=== PATIENT | female | born 1995 | race Hispanic/Latino ===

== ENCOUNTER 2019-02-08 07:28 | Inpatient (IN) | payer OTHER ==
[2019-02-08] MEDS ORDERED: Ringers Lactate 1,000 ML IV PRN (10:30)
[2019-02-08] MEDS ORDERED: METHYLERGONOVINE 0.2MG/ML AMP IM PRN (10:30)
[2019-02-08 10:53] LABS: RPR Titer ND
[2019-02-08 10:58] LABS: Absolute Lymphocytes (CBC) 2.4 K/uL (0.7-4.9); Absolute Monocytes 0.5 K/uL (0.1-1.3); Absolute Neutrophil 6.4 K/uL (1.8-8.0); Basophils % 0.3 % (0-1.3); Eosinophils % 0.5 % (0-4.4); Hematocrit 33.8 % (36.0-45.0); Lymphocytes % 25.5 % (15.3-44.8); MPV 9.4 fL (7.6-11.3); Monocytes % 5.8 % (3.3-12.3); RBC Red Blood Cell Count 4.19 M/uL (3.86-4.86)
[2019-02-08] MEDS ORDERED: Ringers Lactate 1,000 ML IV SCH (11:00)
[2019-02-08] MEDS ORDERED: OXYTOCIN/LR 20 UNIT/1,000 ML BAG IV SCH (11:00)
--- NOTE | 2019-02-08 11:33 | P.OBGYNHP ---
Certification for Inpatient Patient admitted to: Inpatient With expected LOS: >2 Midnights Patient will require the following post-hospital care: None Practitioner: I am a practitioner with admitting privileges, knowledge of patient current condition, hospital course, and medical plan of care. Services: Services provided to patient in accordance with Admission requirements found in Title 42 Section 412.3 of the Code of Federal Regulations Patient History Date of Service: 02/08/19 Reason for admission: INDUCTION OF LABOR History of Present Illness: Patient is a 23 y/o at 36 weeks and 6 days gestation who presents for induction of labor at recommendation of [facility] due to uteroplacental insufficiency. Patient has been followed by [facility] due to high risk . Patient is morbidly obese with a prepregnancy BMI of 43. Patient has been compliant with care and recommendations. Total weight gain has been 6 pounds. She has not developed diabetes. She has also had borderline elevated umbilical artery dopplers for which she has had ultrasounds done with [facility] weekly. She was last seen by [facility] on 02/04/19. Allergies No Known Allergies Allergy (Unverified 11/27/14 05:32) - Past Medical/Surgical History -: Morbid obesity -: Asthma Past Surgical History: Patient denies surgical history - Family History Family History: Reviewed- Non-Contributory - Social History Smoking Status: Never smoker Alcohol use: No CD- Drugs: No Caffeine use: No Place of Residence: Home Review of Systems 10-point ROS is otherwise unremarkable Physical Examination - General General: Alert and in no apparent distress, Oriented x3 HEENT: Atraumatic Neck: Supple Respiratory: Normal air movement Cardiovascular: No edema, Normal pulses Gastrointestinal: Other (obese gravid abdomen) Musculoskeletal: No clubbing, No swelling Integumentary: No rashes, No breakdown Neurological: Normal gait, Normal speech - Female Pelvic External genitalia: Normal, No lesions, No masses Vagina: Normal, [place], Moist Cervix: Dilation (1-2), Effacement (30%), station (-3) Uterus: Gravid Adnexa: Unable to evaluate - Obstetrics heart rate tracing: Category 2 Contractions: Frequency (none) Amniotic membrane: AROM (clear fluid seen) Laboratory Data (last 24 hrs) 02/08/19 10:12: WBC 9.4, Hgb 11.3 L, Hct 33.8 L, Plt Count 404 Microbiology Data (last 24 hrs): GBS NEGATIVE Assessment and Plan - Plan [place] is a 23 y/o at 36 weeks and 6 days gestation with high risk due to morbid obesity, placental insufficiency, elevated umbilical artery dopplers, and asthma. Patient presents for induction of labor as per [facility] recommendations. Patient has had rupture of membranes performed. Pitocin has been started. She is comfortable. GBS negative. Epidural placement at patient's request. Discharge Plan: Home Plan to discharge in: 72 Hours - Advance Directives Does patient have a Living Will: No Does patient have a Durable POA for Healthcare: No
[2019-02-08 12:39] VITALS: BMI 44.4
[2019-02-08] MEDS ORDERED: NA CIT/CITRIC AC 30 ML ORAL UDC PO ONE (20:52)
[2019-02-08] MEDS ORDERED: CEFAZOLIN 2 GM in NA CHLORIDE 0.9% 100 ML IVPB ONE (20:53)
[2019-02-08] MEDS ORDERED: METOCLOPRAMIDE 10 MG/2mL INJ IV SCH (21:00)
[2019-02-08] MEDS ORDERED: CEFAZOLIN 2GM (PREMIX IV) 2 GM/50 ML BAG ONE (21:17)
[2019-02-08] MEDS ORDERED: MORPHINE SULFATE/PF 1 MG/ML (10 ML AMP) ONE (21:23)
[2019-02-08] MEDS ORDERED: OXYTOCIN 10 UNIT/ML ML IV ONE (21:23)
[2019-02-08] MEDS ORDERED: ONDANSETRON 4 MG/2 ML VIAL ONE (21:23)
[2019-02-08] MEDS ORDERED: METHYLERGONOVINE 0.2 MG TAB PO PRN (22:44)
[2019-02-08] MEDS ORDERED: Oxycodone HCl/Acetaminophen 1 TAB TAB PO PRN ×2 (22:44)
[2019-02-08] MEDS ORDERED: DOCUSATE NA/SENNA CONC 1 TAB PO PRN (22:44)
[2019-02-08] MEDS ORDERED: BISACODYL 10 MG RECTAL SUPP RECT PRN (22:44)
[2019-02-08] MEDS ORDERED: ONDANSETRON 4 MG (ODT) TAB PO PRN (22:44)
[2019-02-08] MEDS ORDERED: ACETAMINOPHEN 500 MG TAB PO PRN (22:44)
[2019-02-08] MEDS ORDERED: MORPHINE 4 MG/ML SYR IV PRN (22:50)
[2019-02-08] MEDS ORDERED: KETOROLAC 30 MG/ML INJ IV PRN (22:50)
[2019-02-08] MEDS ORDERED: IBUPROFEN 400 MG TAB PO PRN (22:50)
--- NOTE | 2019-02-08 22:53 | P.OP ---
Assembly Loader: Rachel Lopez Preoperative diagnosis: at 36 weeks and 6 days with failure to progress category ii jarvis Postoperative diagnosis: same Primary procedure: Primary low transverse section Anesthesia: Spinal Estimated blood loss: 800cc Specimen: cord blood, placenta Operative Technique: The patient was taken to the operating room where epidural anesthesia was found to be adequate. The patient was prepped and draped in the usual sterile fashion in the dorsal supine position with a left-arndt tilt. A Pfannenstiel skin incision was made with the scalpel and carried through muliple layers of adipose tissue to the underlying layer of fascia using the scalpel. The fascia was incised in the midline and extended laterally using Samuels scissors. Farhan clamps were used to elevate the superior aspect of the fascial incision, which was elevated, and the underlying rectus muscles were dissected off bluntly and using Samuels scissors. Attention was then turned to the inferior aspect of the fascial incision, which in similar fashion was grasped with Farhan clamps, elevated, and the underlying rectus muscles were dissected off bluntly and using Samuels scissors. The rectus muscles were dissected in the midline. The peritoneum was bluntly dissected, entered, and extended superiorly and inferiorly with good visualization of the bladder. The bladder blade was inserted. The vesicouterine peritoneum was identified with pickups and entered sharply using Metzenbaum scissors. This incision was extended laterally and the bladder flap was created digitally. The bladder blade was reinserted. The lower uterine segment was incised in a transverse fashion using the scalpel and extended using manual traction. Clear fluid was noted. The was subsequently delivered atraumatically. The nose and mouth were bulb suctioned. The cord was clamped and cut. The was subsequently handed to the awaiting nursery nurse. Next, cord blood was obtained per the patient's request for cord blood donation, which took several minutes to perform. Subsequent to the collection of this blood, the placenta was removed spontaneously intact with a 3-vessel cord noted. The uterus was exteriorized and cleared of all clots and debris. The uterine incision was repaired in 2 layers using 1 vicryl suture. Hemostasis was visualized. The uterus was returned to the abdomen. The uterine incision was reexamined and was noted to be hemostatic. The rectus muscles were reapproximated in the midline using 0 Vicryl. The fascia was closed with 1 Vicryl, the subcutaneous layer was closed with 2-0 plain gut, and the skin was closed with 3.0 vicryl on a Renny needle. Sponge, lap, and instrument counts were correct x2. The patient was stable at the completion of the procedure and was subsequently transferred to the recovery room in stable condition. Complications: Other (Increased operative time due to morbid obesity) Drain(s): Urinary catheter Transferred to: Recovery Room Condition: Good
[2019-02-09 02:47] LABS: RPR (Rapid Plasma Reagin) NON-REACT (NON-REACT)
[2019-02-09 06:21] LABS: Absolute Lymphocytes (CBC) 2.4 K/uL (0.7-4.9); Absolute Monocytes 0.8 K/uL (0.1-1.3); Absolute Neutrophil 6.8 K/uL (1.8-8.0); Basophils % 0.2 % (0-1.3); Eosinophils % 0.1 % (0-4.4); Hematocrit 27.9 % (36.0-45.0); Lymphocytes % 24.4 % (15.3-44.8); Monocytes % 7.7 % (3.3-12.3); RBC Red Blood Cell Count 3.47 M/uL (3.86-4.86)
[2019-02-09] MEDS ORDERED: FAMOTIDINE 20 MG/2 ML VIAL IV SCH (09:00)
[2019-02-09] MEDS ORDERED: ENOXAPARIN 40 MG/0.4 ML SQ ONE (11:38)
[2019-02-09] MEDS: IBUPROFEN 200 MG TAB PO PRN (22:30)
[2019-02-10] MEDS: IBUPROFEN 200 MG TAB PO PRN ×3 (07:35→23:55)
--- NOTE | 2019-02-10 18:26 | P.PN ---
Date of Service: 02/10/19
--- NOTE | 2019-02-10 18:26 | P.PN ---
Date of Service: 02/09/19
[2019-02-11] MEDS: IBUPROFEN 200 MG TAB PO PRN (10:18)
--- NOTE | 2019-02-11 11:40 | P.DS ---
Admission Date: 02/08/19 Discharge Date: 02/11/19 Disposition: ROUTINE DISCHARGE Discharge Condition: GOOD Reason for Admission: INDUCTION OF LABOR Brief History of Present Illness: Patient is a 23 y/o at 36 weeks and 6 days gestation who presents for induction of labor at recommendation of [facility] due to uteroplacental insufficiency. Patient has been followed by [facility] due to high risk . Patient is morbidly obese with a prepregnancy BMI of 43. Patient has been compliant with care and recommendations. Total weight gain has been 6 pounds. She has not developed diabetes. She has also had borderline elevated umbilical artery dopplers for which she has had ultrasounds done with [facility] weekly. She was last seen by [facility] on 02/04/19. Vital Signs/Physical Exam: Temp Pulse Resp BP Pulse Ox 97.5 F 89 18 102/45 L 97 02/11/19 00:00 02/11/19 00:00 02/11/19 00:00 02/11/19 00:00 02/09/19 08:00 General: Alert, In no apparent distress HEENT: Atraumatic Neck: Supple Respiratory: Normal air movement Cardiovascular: Normal pulses Laboratory Data at Discharge: WBC 10.0 K/uL (4.3-10.9) 02/09/19 05:52 Hgb 9.3 g/dL (12.0-15.0) L 02/09/19 05:52 Hct 27.9 % (36.0-45.0) L D 02/09/19 05:52 Plt Count 364 K/uL (152-406) 02/09/19 05:52 Home Medications: Vit #108/Iron/FA [ One Tablet] 1 tab PO DAILY 02/08/19 Codeine/APAP [Tylenol W/Codeine #3 tab] 1 tab PO Q6HP PRN #24 tab 02/10/19 New Medications: Codeine/APAP [Tylenol W/Codeine #3 tab] 1 tab PO Q6HP PRN #24 tab PRN Reason: Pain Diet: Regular Activity: No lifting more than 10 lbs Followup: Andrew Parsons DO [ACTIVE - CAN ADMIT] - (Follow up care with Dr. Parsons in 6 weeks for post visit. [phone])
[2019-02-11 12:26] VITALS: BP 105/71; TEMP 97.4
[2019-02-12 02:46] LABS: HBsAG Nonreactive (Nonreactive)
== END 2019-02-11 10:22 | disposition home or self-care (01) | DRG 787 ==
LOC: 2ND-WC 10:00
PROVIDERS: ADMIT Student in an Organized Health Care Education/Training Program; ATTEND Student in an Organized Health Care Education/Training Program
PROC: 3E033VJ Introduction of Other Hormone into Peripheral Vein, Percutaneous Approach (ICD-10-PCS; 2019-02-08)
PROC: 10D00Z1 Extraction of Products of Conception, Low, Open Approach (ICD-10-PCS; 2019-02-08)
PROC: 6A550ZT Pheresis of Cord Blood Stem Cells, Single (ICD-10-PCS; 2019-02-08)
PROC: 10907ZC Drainage of Amniotic Fluid, Therapeutic from Products of Conception, Via Natural or Artificial Opening (ICD-10-PCS; principal; 2019-02-08 21:25)
DX: O36.5130 Maternal care for known or suspected placental insufficiency, third trimester, not applicable or unspecified (principal); Z68.41 Body mass index [BMI] 40.0-44.9, adult; O99.214 Obesity complicating childbirth; E66.01 Morbid (severe) obesity due to excess calories; O63.1 Prolonged second stage (of labor); Z3A.36 36 weeks gestation of pregnancy; Z37.0 Single live birth
CPT/HCPCS: 36415; 85025; 86592; 86850; 86900; 86901; 87340; 88307; J0690; J1650; J2405; J2590; J2765

== ENCOUNTER 2023-02-17 11:15 | Emergency (ER) | payer BC, OTHER ==
--- OUTSIDE RECORDS SUMMARY | 2023-02-17 11:50 | XMS REPORT | Continuity of Care Document ---
:1995 Author Organization [facility] t Address [address] [address] Care Team Providers Name Role Phone SILKE PAYTON Attending Clinician Unavailable Ally Henry Attending Clinician Unavailable Preston Anne Attending Clinician Unavailable Kelechi STOKES, Juan Hankins Attending Clinician [phone] Silke Payton MD Attending Clinician SILKE PAYTON Admitting Clinician Unavailable Payers Payer Name Policy Type Policy Number Effective Date Expiration Date S our BCBS OS [id number] 2021 POS/PPO/EPO 00:00:00 Blue Cross 6 [id number] [facility] t Blue Shield [facility] AETNA 53 [id number] 2020 [facility] 00:00:00 [facility] AETNA C1 [id number] [facility] Problems Condition Condition Condition Status Onset Resolution Last Treating Co mments Source Name Details Category Date Date Treatment Clinician Date Endometria Endometria Disease Active [facility] polyp [facility] polyp 7[facility]20 [facility] 00 Center Class 3 Class [address] [facility] severe severe nce 02-23 [facility] obesity in obesity in 00:00: Me dical adult adult 00 Center History of History of Disease Active [facility] delivery delivery 00:00: Medica l 00 Center History of History of Disease Active [facility] 02-23 kes delivery- delivery- 00:00: Medi erich 36 - 37 36 - 37 00 Center weeks; weeks; oligo oligo Intermenst Intermenst Disease Active [facility] rual rual 02-23 [facility] bleeding bleeding 00:00: Medica 00 Center PMS PMS Disease Active [facility] (prem[facility]str (premenstr 02-23 Shayy kes ual ual 00:00: Medical syndrome) syndrome) 00 Cent er Anxiety Anxiety Disease Active Overview: [facility] and and [facility] [facility] depression depression 00:00: g of this Medical 00 note Center might be different from the original. getting better [id number] Contact Problem Commo n with and Spirit (suspected - CHI ) exposure St to [facility] viral Medical communicab Center le diseases [id number] Cough Problem [facility] - [facility] [id number] Amenorrhea Problem Com mon Spirit - [facility] [id number] Seasonal Problem Commo n allergic Spirit rhinitis - [facility] due to [facility] [id number] Sinus Problem Common congestion Spirit - [facility] [id number] Vitamin D Problem Comm on deficiency Spirit - [facility] [id number] Problem Comm on of unknown Spirit anatomic - [facility] location [facility] [id number] Mild Problem Common intermitte Spirit nt asthma - [facility] without St complicati [facility] [id number] Paresthesi Problem Com mon a of skin Spirit - [facility] [id number] Encounter Problem Com mon for Spirit initial - [facility] prescript[facility] Center [id number] Supervisio Problem Com mon n of high Spirit risk - [facility] in third [facility] trimester Medical Center [id number] Obesity Problem Comm on affecting Spirit - [facility]I in third St trimester [facility] [id number] Placental Problem Com mon insufficie Spirit ncy in - [facility] third St trimester, [facility] single or Medical unspecifie Center d fetus [id number] Body mass Problem Com mon index Spirit [BMI] - [facility] 40.0-44.9, [facility] [id number] Mild Problem Common asthma Spirit without - [facility] complicati St on, [facility] unspecifie Medica l d whether Center persistent Seasonal Allergic Problem Commo n allergic rhinitis, Spiri t rhinitis seasonal - [facility] [id number] Upper Problem Common respirator [facility] y tract - [facility], [facility] [id number] Anxiety Problem Common [facility] [id number] Throat Problem Common pain in [facility] adult [facility] [id number] Allergic Problem Commo n rhinitis, Spirit unspecifie - [facility] d St seasonalit [facility] y, Medical unspecifie Center d trigger [id number] Mild Problem Common anxiety [facility] [id number] Trouble in Problem Co mmon sleeping [facility] [id number] Obesity, Problem Comm on morbid, Spirit BMI - [facility] 40.0-49.9 [facility] Asthma Asthma Disease Active [facility] Allergies, Adverse Reactions, Alerts Allergy Allergy Status Severity Reaction(s) Onset Inactive Treating Comm ents Source Name Type Date Date Clinician NO KNOWN Allergy Active [facility] ALLERGIE S Cinnamon Cinnamon Active Unknown Commo n [facility] Family History Family Member Diagnosis Comments Start Date Stop Date Source Natural father Diabetes [facility] Natural father High blood [facility] pressure [facility] Maternal grandmother Diabetes [facility] Maternal grandmother Thyroid disease [facility] Natural mother Thyroid disease [facility] Other Liver cancer [facility] Paternal grandmother Diabetes [facility] Social History Social Habit Start Date Stop Date Quantity Comments Source History of Tobacco [facility] - Use [facility] History [facility] Alcohol Std Drinks Medica [facility] History [facility] Alcohol Binge Medical Latanya ter Alcohol intake 2022-06-19 2022-06-19 Ex-drinker [facility] Lizzie es 00:00:00 00:00:00 (finding) [facility] Center Tobacco use and 2022-02-22 2022-02-[address] [facility] exposure 00:00:00 00:00:00 non-user [facility] Center History SDOH 2022-02-22 2022-02-[address] [facility] Alcohol Frequency 00:00:00 00:00:00 [facility] Center Sex Ass[birth year] At [birth year] ANAND Jacquess 00:00:00 00:00:00 [facility] Center Smoking Status Start Date Stop Date Source Never Smoker [facility] - [facility] Medications Ordered Filled Start Stop Current Ordering Indication Dosage Frequency Signature Comments Components Source Medication Medication Date Date Medication? Clinician (SIG) Name Name Zoloft 25 Zoloft 25 No 1{table QD Zoloft 25 MG MG 01-09 t} MG 00:00: 00 ergocalcife Yes TAKE [address] rol 01-02 CAPSULE BY Lesa (ERGOCALCIF 00:00: MOUTH 1 Med ical SIVA) 1,250 00 TIME A Center mcg (50,000 WEEK FOR 6 unit) WEEKS capsule Aiyana Bronson 2021-12 No 40mg Common (Triamcinol (Triamcinol 2-19 S pirit one) one) 00:00: - [facility] Aiyana Bronson 2021-12 No 40mg Common (Triamcinol (Triamcinol 2-19 S pirit one) one) 00:00: - [facility]12 No 40mg Common (Triamcinol (Triamcinol 2-19 S pirit one) one) 00:00: - [facility] 2021-12 No 40mg Common (Triamcinol (Triamcinol 2-19 S pirit one) one) 00:00: - [facility] Farrellalog 2021-12 No 40mg Common (Triamcinol (Triamcinol 2-19 S pirit one) one) 00:00: - [facility] Far[facility] 2021-12 No 40mg Common (Triamcinol (Triamcinol 2-19 S pirit one) one) 00:00: - [facility]I 00 [facility] Saxenda 18 Saxenda 18 2021-12- No QD Saxenda 18 MG/3ML MG/3ML 2-06 03-06 MG/3ML 00:00: 00:00 00 :00 Saxenda 18 Saxenda 18 2021-12- No QD Saxenda 18 MG/3ML MG/3ML 2-06 03-06 MG/3ML 00:00: 00:00 00 :00 Saxenda 18 Saxenda 18 2021-12- No QD Saxenda 18 MG/3ML MG/3ML 2-06 03-06 MG/3ML 00:00: 00:00 00 :00 Saxenda 18 Saxenda 18 2021-12- No QD Saxenda 18 MG/3ML MG/3ML 2-06 03-06 MG/3ML 00:00: 00:00 00 :00 Saxenda 18 Saxenda 18 2021-12- No QD Saxenda 18 MG/3ML MG/3ML 2-06 03-06 MG/3ML 00:00: 00:00 00 :00 Saxenda 18 Saxenda 18 2021-12- No QD Saxenda 18 MG/3ML MG/3ML 2-06 03-06 MG/3ML 00:00: 00:00 00 :00 Saxenda 18 Saxenda 18 2021-12- No QD Saxenda 18 MG/3ML MG/3ML 2-06 03-06 MG/3ML 00:00: 00:00 00 :00 Wegovy 0.25 Wegovy 0.25 2021-12- No .5{ml} Wegovy MG/0.5ML MG/0.5ML 01-05- 0.25 00:00: 00:00 MG/0.5ML 00 :00 Wegovy 0.25 Wegovy 0.25 2021-12- No .5{ml} Wegovy MG/0.5ML MG/0.5ML 01-05-04 0.25 00:00: 00:00 MG/0.5ML 00 :00 Wegovy 0.25 Wegovy 0.25 2021-12- No .5{ml} Wegovy MG/0.5ML MG/0.5ML 01-05 0.25 00:00: 00:00 MG/0.5ML 00 :00 Wegovy 0.25 Wegovy 0.25 2021-12 .5{ml} Wegovy MG/0.5ML MG/0.5ML 01-05 0.25 00:00: 00:00 MG/0.5ML 00 :00 Wegovy 0.25 Wegovy 0.25 2021-125{ml} Wegovy MG/0.5ML MG/0.5ML 01-05 0.25 00:00: 00:00 MG/0.5ML 00 :00 Wegovy 0.25 Wegovy 0.25 2021-125{ml} Wegovy MG/0.5ML MG/0.5ML 01-05 0.25 00:00: 00:00 MG/0.5ML 00 :00 Wegovy 0.25 Wegovy 0.25 2021-12 No 5{ml} Wegovy MG/0.5ML MG/0.5ML 01-05 0.25 00:00: 00:00 MG/0.5ML 00 :00 Wegovy 0.25 Wegovy 0.25 2021-12 No 5{ml} Wegovy MG/0.5ML MG/0.5ML 01-05 0.25 00:00: 00:00 MG/0.5ML 00 :00 Wegovy 0.25 Wegovy 0.25 2021-12 No 5{ml} Wegovy MG/0.5ML MG/0.5ML 01-05 0.25 00:00: 00:00 MG/0.5ML 00 :00 Wegovy 0.25 Wegovy 0.25 2021-12 No 5{ml} Wegovy MG/0.5ML MG/0.5ML 2-05 01-04 0.25 00:00: 00:00 MG/0.5ML 00 :00 Wegovy 0.25 Wegovy 0.25 2021-12- No .5{ml} Wegovy MG/0.5ML MG/0.5ML 01-0504 0.25 00:00: 00:00 MG/0.5ML 00 :00 Wegovy 0.25 Wegovy 0.25 2021-12- No .5{ml} Wegovy MG/0.5ML MG/0.5ML 01-05 0.25 00:00: 00:00 MG/0.5ML 00 :00 ergocalcife 2022- No TAKE [address] rol 7-18 02-02 CAPSULE BY [facility] (ERGOCALCIF 00:00: 00:00 MOUTH 1 Me dical SIVA) 1,250 00 :00 TIME A Center mcg (50,000 WEEK FOR 6 unit) WEEKS capsule ergocalcife 2021-0 2021- No [id number] Q7D Take [address] rol 7-18 07-18 capsule [facility] (ERGOCALCIF 00:00: 00:00 (50,000 Me dical SIVA) 1,250 00 :00 Units Center mcg (50,000 total) by unit) mouth once capsule a week One po weekly x 6 weeks. ergocalcife 2021-0 2021- No TAKE [address] rol 7-18 07-18 CAPSULE BY [facility] (ERGOCALCIF 00:00: 00:00 MOUTH 1 Me dical SIVA) 1,250 00 :00 TIME A Center mcg (50,000 WEEK FOR 6 unit) WEEKS capsule ergocalcife 2021-0 2021- No TAKE [address] rol 3-26 07-18 CAPSULE BY [facility] (ERGOCALCIF 00:00: 00:00 MOUTH 1 Me dical SIVA) 1,250 00 :00 TIME A Center mcg (50,000 WEEK FOR 6 unit) WEEKS capsule ergocalcife 2021-0 2021- No [id number] Q7D Take [address] rol 3-26 03-26 capsule [facility] (ERGOCALCIF 00:00: 00:00 (50,000 Me dical SIVA) 1,250 00 :00 Units Center mcg (50,000 total) by unit) mouth once capsule a week One po weekly x 6 weeks. Kenalog Kenalog 2021-0 No 40mg Common (Triamcinol (Triamcinol 3-03 S pirit one) one) 00:00: - [facility]I 00 [facility] Kenalog Kenalog 2021-0 No 40mg Common (Triamcinol (Triamcinol 3-03 S pirit one) one) 00:00: - CHI 00 [facility] Kenalog Kenalog 2021-0 No 40mg Common (Triamcinol (Triamcinol 3-03 S pirit one) one) 00:00: - CHI 00 [facility] Kenalog Kenalog 2021-0 No 40mg Common (Triamcinol (Triamcinol 3-03 S pirit one) one) 00:00: - [facility]I 00 [facility] Kenalog Kenalog 2021-0 No 40mg Common (Triamcinol (Triamcinol 3-03 S pirit one) one) 00:00: - CHI 00 [facility] Kenalog Kenalog 2021-0 No 40mg Common (Triamcinol (Triamcinol 3-03 S pirit one) one) 00:00: - [facility]I 00 [facility] Kenalog Kenalog 2021-0 No 40mg Common (Triamcinol (Triamcinol 3-03 S pirit one) one) 00:00: - [facility]I 00 [facility] Kenalog Kenalog 2021-0 No 40mg Common (Triamcinol (Triamcinol 3-03 S pirit one) one) 00:00: - [facility]I 00 [facility] Kenalog Kenalog 2021-0 No 40mg Common (Triamcinol (Triamcinol 3-03 S pirit one) one) 00:00: - [facility]I 00 [facility] Kenalog Kenalog 2021-0 No 40mg Common (Triamcinol (Triamcinol 3-03 S pirit one) one) 00:00: - [facility]I 00 [facility] Kenalog Kenalog 2021-0 No 40mg Common (Triamcinol (Triamcinol 3-03 S pirit one) one) 00:00: - [facility]I 00 [facility] Azelastine Azelastine 0 No 1{puff_ BID Azelastine HCl 137 HCl 137 01-29 in_each HCl 137 MCG/SPRAY MCG/SPRAY 00:00: _nostri MCG/SPRAY 00 l} Fluticasone Fluticasone 0 No 1{spray QD Fluticason Propionate Propionate 01-29 _in_eac e 50 MCG/ACT 50 MCG/ACT 00:00: h_nostr Propionate 00 il} 50 MCG/ACT fluticasone 0 Yes [address] propionate 3 each [facility] (FLONASE) 00:00: nostril Medic al 50 00 Center mcg/actuati on nasal spray busPIRone busPIRone 2020-12 No 1{table busPIRone HCl 7.5 MG HCl 7.5 MG 2-07 t} HCl 7.5 MG 00:00: 00 busPIRone busPIRone 2020-12 No 1{table busPIRone HCl 7.5 MG HCl 7.5 MG 2-07 t} HCl 7.5 MG 00:00: 00 busPIRone busPIRone 2020-12 No 1{table busPIRone HCl 7.5 MG HCl 7.5 MG 2-07 t} HCl 7.5 MG 00:00: 00 busPIRone busPIRone 2020-12 No 1{table busPIRone HCl 7.5 MG HCl 7.5 MG 2-07 t} HCl 7.5 MG 00:00: 00 busPIRone busPIRone 2020-12 No 1{table busPIRone HCl 7.5 MG HCl 7.5 MG 2-07 t} HCl 7.5 MG 00:00: 00 busPIRone busPIRone 2020-12 No 1{table busPIRone HCl 7.5 MG HCl 7.5 MG 2-07 t} HCl 7.5 MG 00:00: 00 busPIRone busPIRone 2020-12 No 1{table busPIRone HCl 7.5 MG HCl 7.5 MG 2-07 t} HCl 7.5 MG 00:00: 00 busPIRone busPIRone 2020-12 No 1{table busPIRone HCl 7.5 MG HCl 7.5 MG 2-07 t} HCl 7.5 MG 00:00: 00 busPIRone busPIRone 2020-12 No 1{table busPIRone HCl 7.5 MG HCl 7.5 MG 2-07 t} HCl 7.5 MG 00:00: 00 busPIRone busPIRone 2020-12 No 1{table busPIRone HCl 7.5 MG HCl 7.5 MG 2-07 t} HCl 7.5 MG 00:00: 00 busPIRone busPIRone 2020-12 No 1{table busPIRone HCl 7.5 MG HCl 7.5 MG 2-07 t} HCl 7.5 MG 00:00: 00 busPIRone busPIRone 2020-12 No 1{table busPIRone HCl 7.5 MG HCl 7.5 MG 2-07 t} HCl 7.5 MG 00:00: 00 busPIRone busPIRone 2020-12 No 1{table busPIRone HCl 7.5 MG HCl 7.5 MG 2-07 t} HCl 7.5 MG 00:00: 00 busPIRone busPIRone 2020-12 No 1{table busPIRone HCl 7.5 MG HCl 7.5 MG 2-07 t} HCl 7.5 MG 00:00: 00 busPIRone busPIRone 2020-12 No 1{table busPIRone HCl 7.5 MG HCl 7.5 MG 2-07 t} HCl 7.5 MG 00:00: 00 busPIRone 2020-12- No [address] (BUSPAR) 01-07 [facility] 7.5 MG 00:00: 00:00 Medical tablet 00 :00 [facility] 2020-12 No 40mg Common (Triamcinol (Triamcinol 1-19 S pirit one) one) 00:00: - [facility]I 00 [facility] 2020-12 No 40mg Common (Triamcinol (Triamcinol 1-19 S pirit one) one) 00:00: - CHI 00 [facility] 2020-12 No 40mg Common (Triamcinol (Triamcinol 1-19 S pirit one) one) 00:00: - CHI 00 [facility] Aiyana Bronson 2020-12 No 40mg Common (Triamcinol (Triamcinol 1-19 S pirit one) one) 00:00: - CHI 00 [facility] Aiyana Bronson 2020-12 No 40mg Common (Triamcinol (Triamcinol 1-19 S pirit one) one) 00:00: - [facility]I 00 [facility] 2020-12 No 40mg Common (Triamcinol (Triamcinol 1-19 S pirit one) one) 00:00: - [facility]I 00 [facility] 2020-12 No 40mg Common (Triamcinol (Triamcinol 1-19 S pirit one) one) 00:00: - CHI 00 [facility] Aiyana 2020-12 No 40mg Common (Triamcinol (Triamcinol 1-19 S pirit one) one) 00:00: - [facility]I 00 [facility] Aiyana 2020-12 No 40mg Common (Triamcinol (Triamcinol 1-19 S pirit one) one) 00:00: - CHI 00 [facility] 2020-12 No 40mg Common (Triamcinol (Triamcinol 1-19 S pirit one) one) 00:00: - CHI 00 [facility] Aiyana Bronson 2020-12 No 40mg Common (Triamcinol (Triamcinol 1-19 S pirit one) one) 00:00: - [facility]I 00 [facility] Aiyana 2020-12 No 40mg Common (Triamcinol (Triamcinol 1-19 S pirit one) one) 00:00: - [facility]I 00 [facility] Phentermine Phentermine 2020-12- No Phentermin HCl 37.5 MG HCl 37.5 MG 12-03 e HCl 37.5 00:00: 00:00 MG 00 :00 Adipex-P Adipex-P 2020-12- No QD Adipex-P 37.5 MG 37.5 MG 1-03 12-02 37.5 MG 00:00: 00:00 00 :00 Adipex-P Adipex-P 2020-12- No QD Adipex-P 37.5 MG 37.5 MG 12-03 37.5 MG 00:00: 00:00 00 :00 Phentermine Phentermine 2020-12- No Phentermin HCl 37.5 MG HCl 37.5 MG 12-03 e HCl 37.5 00:00: 00:00 MG 00 :00 Adipex-P Adipex-P 2020-12- No QD Adipex-P 37.5 MG 37.5 MG 12-03 37.5 MG 00:00: 00:00 00 :00 Phentermine Phentermine 2020-12- No Phentermin HCl 37.5 MG HCl 37.5 MG 12-03 e HCl 37.5 00:00: 00:00 MG 00 :00 Benzonatate Benzonatate 2020- No 1{capsu Benzonatat 100 MG 100 MG 04-16 le_as_n e 100 MG 00:00: 00:00 eeded} 00 :00 Benzonatate Benzonatate 2020- No 1{capsu Benzonatat 100 MG 100 MG 04-16 le_as_n e 100 MG 00:00: 00:00 eeded} 00 :00 Benzonatate Benzonatate 2020- No 1{capsu Benzonatat 100 MG 100 MG 04-16 le_as_n e 100 MG 00:00: 00:00 eeded} 00 :00 Azithromyci Azithromyci 2020- No QD Azithromyc n 250 MG n 250 MG -14 05-19 in 250 MG 00:00: 00:00 00 :00 PredniSONE PredniSONE 2020- No QD PredniSONE 10 MG 10 MG 5-14 05-19 10 MG 00:00: 00:00 00 :00 PredniSONE PredniSONE 2020- No QD PredniSONE 10 MG 10 MG 5-14 05-19 10 MG 00:00: 00:00 00 :00 Azithromyci Azithromyci 2020- No QD Azithromyc n 250 MG n 250 MG 5-14 05-19 in 250 MG 00:00: 00:00 00 :00 PredniSONE PredniSONE 2020-0 2020- No QD PredniSONE 10 MG 10 MG 5-14 05-19 10 MG 00:00: 00:00 00 :00 Azithromyci Azithromyci 2020-0 2020- No QD Azithromyc n 250 MG n 250 MG 5-14 05-19 in 250 MG 00:00: 00:00 00 :00 PredniSONE PredniSONE 2020-0 2020- No QD PredniSONE 10 MG 10 MG 5-14 05-19 10 MG 00:00: 00:00 00 :00 Azithromyci Azithromyci 2020-0 2020- No QD Azithromyc n 250 MG n 250 MG 5-14 05-19 in 250 MG 00:00: 00:00 00 :00 Fluconazole Fluconazole 0 2020- No Fluconazol 150 MG 150 MG 03-16-26 e 150 MG 00:00: 00:00 00 :00 Albuterol Albuterol No 3{ml_as TID Albuterol Sulfate Sulfate -06 _needed Sulfate (2.5 (2.5 00:00: } (2.5 MG/3ML) MG/3ML) 00 MG/3ML) 0.083% 0.083% 0.083% Montelukast Montelukast No 1{table QD Montelukas Sodium 10 Sodium 10 -06 t} t Sodium MG MG 00:00: 10 MG 00 Montelukast Montelukast No 1{table QD Montelukas Sodium 10 Sodium 10 4-06 t} t Sodium MG MG 00:00: 10 MG 00 Albuterol Albuterol No 3{ml_as TID Albuterol Sulfate Sulfate 4-06 _needed Sulfate (2.5 (2.5 00:00: } (2.5 MG/3ML) MG/3ML) 00 MG/3ML) 0.083% 0.083% 0.083% Montelukast Montelukast No 1{table QD Montelukas Sodium 10 Sodium 10 4-06 t} t Sodium MG MG 00:00: 10 MG 00 Albuterol Albuterol No 3{ml_as TID Albuterol Sulfate Sulfate 4-06 _needed Sulfate (2.5 (2.5 00:00: } (2.5 MG/3ML) MG/3ML) 00 MG/3ML) 0.083% 0.083% 0.083% Montelukast Montelukast No 1{table QD Montelukas Sodium 10 Sodium 10 4-06 t} t Sodium MG MG 00:00: 10 MG 00 Albuterol Albuterol No 3{ml_as TID Albuterol Sulfate Sulfate 4-06 _needed Sulfate (2.5 (2.5 00:00: } (2.5 MG/3ML) MG/3ML) 00 MG/3ML) 0.083% 0.083% 0.083% Montelukast Montelukast No 1{table QD Montelukas Sodium 10 Sodium 10 4-06 t} t Sodium MG MG 00:00: 10 MG 00 Albuterol Albuterol No 3{ml_as TID Albuterol Sulfate Sulfate 4-06 _needed Sulfate (2.5 (2.5 00:00: } (2.5 MG/3ML) MG/3ML) 00 MG/3ML) 0.083% 0.083% 0.083% Montelukast Montelukast No 1{table QD Montelukas Sodium 10 Sodium 10 4-06 t} t Sodium MG MG 00:00: 10 MG 00 Albuterol Albuterol No 3{ml_as TID Albuterol Sulfate Sulfate 4-06 _needed Sulfate (2.5 (2.5 00:00: } (2.5 MG/3ML) MG/3ML) 00 MG/3ML) 0.083% 0.083% 0.083% Montelukast Montelukast No 1{table QD Montelukas Sodium 10 Sodium 10 4-06 t} t Sodium MG MG 00:00: 10 MG 00 Albuterol Albuterol No 3{ml_as TID Albuterol Sulfate Sulfate 4-06 _needed Sulfate (2.5 (2.5 00:00: } (2.5 MG/3ML) MG/3ML) 00 MG/3ML) 0.083% 0.083% 0.083% Albuterol Albuterol No 3{ml_as TID Albuterol Sulfate Sulfate 4-06 _needed Sulfate (2.5 (2.5 00:00: } (2.5 MG/3ML) MG/3ML) 00 MG/3ML) 0.083% 0.083% 0.083% Montelukast Montelukast No 1{table QD Montelukas Sodium 10 Sodium 10 4-06 t} t Sodium MG MG 00:00: 10 MG 00 Albuterol Albuterol No 3{ml_as TID Albuterol Sulfate Sulfate 4-06 _needed Sulfate (2.5 (2.5 00:00: } (2.5 MG/3ML) MG/3ML) 00 MG/3ML) 0.083% 0.083% 0.083% Montelukast Montelukast No 1{table QD Montelukas Sodium 10 Sodium 10 4-06 t} t Sodium MG MG 00:00: 10 MG 00 Albuterol Albuterol No 3{ml_as TID Albuterol Sulfate Sulfate 4-06 _needed Sulfate (2.5 (2.5 00:00: } (2.5 MG/3ML) MG/3ML) 00 MG/3ML) 0.083% 0.083% 0.083% Montelukast Montelukast No 1{table QD Montelukas Sodium 10 Sodium 10 4-06 t} t Sodium MG MG 00:00: 10 MG 00 Albuterol Albuterol No 3{ml_as TID Albuterol Sulfate Sulfate 4-06 _needed Sulfate (2.5 (2.5 00:00: } (2.5 MG/3ML) MG/3ML) 00 MG/3ML) 0.083% 0.083% 0.083% Montelukast Montelukast 2021-0 No 1{table QD Montelukas Sodium 10 Sodium 10 4-06 t} t Sodium MG MG 00:00: 10 MG 00 Albuterol Albuterol No 3{ml_as TID Albuterol Sulfate Sulfate 4-06 _needed Sulfate (2.5 (2.5 00:00: } (2.5 MG/3ML) MG/3ML) 00 MG/3ML) 0.083% 0.083% 0.083% Montelukast Montelukast No 1{table QD Montelukas Sodium 10 Sodium 10 4-06 t} t Sodium MG MG 00:00: 10 MG 00 Albuterol Albuterol No 3{ml_as TID Albuterol Sulfate Sulfate 4-06 _needed Sulfate (2.5 (2.5 00:00: } (2.5 MG/3ML) MG/3ML) 00 MG/3ML) 0.083% 0.083% 0.083% Montelukast Montelukast No 1{table QD Montelukas Sodium 10 Sodium 10 4-06 t} t Sodium MG MG 00:00: 10 MG 00 Albuterol Albuterol No 3{ml_as TID Albuterol Sulfate Sulfate 4-06 _needed Sulfate (2.5 (2.5 00:00: } (2.5 MG/3ML) MG/3ML) 00 MG/3ML) 0.083% 0.083% 0.083% Montelukast Montelukast No 1{table QD Montelukas Sodium 10 Sodium 10 4-06 t} t Sodium MG MG 00:00: 10 MG 00 Montelukast Montelukast No 1{table QD Montelukas Sodium 10 Sodium 10 4-06 t} t Sodium MG MG 00:00: 10 MG 00 Albuterol Albuterol No 3{ml_as TID Albuterol Sulfate Sulfate 4-06 _needed Sulfate (2.5 (2.5 00:00: } (2.5 MG/3ML) MG/3ML) 00 MG/3ML) 0.083% 0.083% 0.083% Albuterol Albuterol No 3{ml_as TID Albuterol Sulfate Sulfate 4-06 _needed Sulfate (2.5 (2.5 00:00: } (2.5 MG/3ML) MG/3ML) 00 MG/3ML) 0.083% 0.083% 0.083% Montelukast Montelukast No 1{table QD Montelukas Sodium 10 Sodium 10 4-06 t} t Sodium MG MG 00:00: 10 MG 00 Albuterol Albuterol No 3{ml_as TID Albuterol Sulfate Sulfate 4-06 _needed Sulfate (2.5 (2.5 00:00: } (2.5 MG/3ML) MG/3ML) 00 MG/3ML) 0.083% 0.083% 0.083% Montelukast Montelukast No 1{table QD Montelukas Sodium 10 Sodium 10 4-06 t} t Sodium MG MG 00:00: 10 MG 00 Albuterol Albuterol No 3{ml_as TID Albuterol Sulfate Sulfate 4-06 _needed Sulfate (2.5 (2.5 00:00: } (2.5 MG/3ML) MG/3ML) 00 MG/3ML) 0.083% 0.083% 0.083% Montelukast Montelukast No 1{table QD Montelukas Sodium 10 Sodium 10 4-06 t} t Sodium MG MG 00:00: 10 MG 00 Albuterol Albuterol No 3{ml_as TID Albuterol Sulfate Sulfate 4-06 _needed Sulfate (2.5 (2.5 00:00: } (2.5 MG/3ML) MG/3ML) 00 MG/3ML) 0.083% 0.083% 0.083% Montelukast Montelukast No 1{table QD Montelukas Sodium 10 Sodium 10 4-06 t} t Sodium MG MG 00:00: 10 MG 00 Montelukast Montelukast No 1{table QD Montelukas Sodium 10 Sodium 10 4-06 t} t Sodium MG MG 00:00: 10 MG 00 Albuterol Albuterol No 3{ml_as TID Albuterol Sulfate Sulfate 4-06 _needed Sulfate (2.5 (2.5 00:00: } (2.5 MG/3ML) MG/3ML) 00 MG/3ML) 0.083% 0.083% 0.083% Albuterol Albuterol No 3{ml_as TID Albuterol Sulfate Sulfate 4-06 _needed Sulfate (2.5 (2.5 00:00: } (2.5 MG/3ML) MG/3ML) 00 MG/3ML) 0.083% 0.083% 0.083% Montelukast Montelukast No 1{table QD Montelukas Sodium 10 Sodium 10 03-06 t} t Sodium MG MG 00:00: 10 MG 00 Albuterol Albuterol No 3{ml_as TID Albuterol Sulfate Sulfate 4-06 _needed Sulfate (2.5 (2.5 00:00: } (2.5 MG/3ML) MG/3ML) 00 MG/3ML) 0.083% 0.083% 0.083% Montelukast Montelukast No 1{table QD Montelukas Sodium 10 Sodium 10 06 t} t Sodium MG MG 00:00: 10 MG 00 Albuterol Albuterol No 3{ml_as TID Albuterol Sulfate Sulfate 4-06 _needed Sulfate (2.5 (2.5 00:00: } (2.5 MG/3ML) MG/3ML) 00 MG/3ML) 0.083% 0.083% 0.083% Montelukast Montelukast No 1{table QD Montelukas Sodium 10 Sodium 10 06 t} t Sodium MG MG 00:00: 10 MG 00 Albuterol Albuterol No 3{ml_as TID Albuterol Sulfate Sulfate 4-06 _needed Sulfate (2.5 (2.5 00:00: } (2.5 MG/3ML) MG/3ML) 00 MG/3ML) 0.083% 0.083% 0.083% Montelukast Montelukast No 1{table QD Montelukas Sodium 10 Sodium 10 4-06 t} t Sodium MG MG 00:00: 10 MG 00 Albuterol Albuterol No 3{ml_as TID Albuterol Sulfate Sulfate 4-06 _needed Sulfate (2.5 (2.5 00:00: } (2.5 MG/3ML) MG/3ML) 00 MG/3ML) 0.083% 0.083% 0.083% Montelukast Montelukast No 1{table QD Montelukas Sodium 10 Sodium 10 4-06 t} t Sodium MG MG 00:00: 10 MG 00 Montelukast Montelukast No 1{table QD Montelukas Sodium 10 Sodium 10 4-06 t} t Sodium MG MG 00:00: 10 MG 00 Albuterol Albuterol No 3{ml_as TID Albuterol Sulfate Sulfate 4-06 _needed Sulfate (2.5 (2.5 00:00: } (2.5 MG/3ML) MG/3ML) 00 MG/3ML) 0.083% 0.083% 0.083% Montelukast Montelukast No 1{table QD Montelukas Sodium 10 Sodium 10 4-06 t} t Sodium MG MG 00:00: 10 MG 00 Albuterol Albuterol No 3{ml_as TID Albuterol Sulfate Sulfate 4-06 _needed Sulfate (2.5 (2.5 00:00: } (2.5 MG/3ML) MG/3ML) 00 MG/3ML) 0.083% 0.083% 0.083% Montelukast Montelukast No 1{table QD Montelukas Sodium 10 Sodium 10 4-06 t} t Sodium MG MG 00:00: 10 MG 00 Albuterol Albuterol No 3{ml_as TID Albuterol Sulfate Sulfate 4-06 _needed Sulfate (2.5 (2.5 00:00: } (2.5 MG/3ML) MG/3ML) 00 MG/3ML) 0.083% 0.083% 0.083% Montelukast Montelukast No 1{table QD Montelukas Sodium 10 Sodium 10 4-06 t} t Sodium MG MG 00:00: 10 MG 00 Albuterol Albuterol No 3{ml_as TID Albuterol Sulfate Sulfate 4-06 _needed Sulfate (2.5 (2.5 00:00: } (2.5 MG/3ML) MG/3ML) 00 MG/3ML) 0.083% 0.083% 0.083% Montelukast Montelukast No 1{table QD Montelukas Sodium 10 Sodium 10 -06 t} t Sodium MG MG 00:00: 10 MG 00 Albuterol Albuterol No 3{ml_as TID Albuterol Sulfate Sulfate 4-06 _needed Sulfate (2.5 (2.5 00:00: } (2.5 MG/3ML) MG/3ML) 00 MG/3ML) 0.083% 0.083% 0.083% Albuterol Albuterol No 3{ml_as TID Albuterol Sulfate Sulfate 4-06 _needed Sulfate (2.5 (2.5 00:00: } (2.5 MG/3ML) MG/3ML) 00 MG/3ML) 0.083% 0.083% 0.083% Montelukast Montelukast No 1{table QD Montelukas Sodium 10 Sodium 10 4-06 t} t Sodium MG MG 00:00: 10 MG 00 Albuterol Albuterol No 3{ml_as TID Albuterol Sulfate Sulfate 4-06 _needed Sulfate (2.5 (2.5 00:00: } (2.5 MG/3ML) MG/3ML) 00 MG/3ML) 0.083% 0.083% 0.083% Montelukast Montelukast No 1{table QD Montelukas Sodium 10 Sodium 10 4-06 t} t Sodium MG MG 00:00: 10 MG 00 montelukast 2020-0 Yes [address] [facility] [address] [facility] PredniSONE PredniSONE 2020-0 2020- No QD PredniSONE 10 MG 10 MG 03-06- 10 MG 00:00: 00:00 00 :00 Flonase 50 Flonase 50 2020-0 No 2{spray QD Flonase 50 MCG/ACT MCG/ACT 2-25 _in_eac MCG/ACT 00:00: h_nostr 00 il} Cetirizine Cetirizine 2020- No 1{table Cetirizine HCl 10 MG HCl 10 MG 2-25 t} HCl 10 MG 00:00: 00 Flonase 50 Flonase 50 2020-0 No 2{spray QD Flonase 50 MCG/ACT MCG/ACT 2-25 _in_eac MCG/ACT 00:00: h_nostr 00 il} Cetirizine Cetirizine 2020- No 1{table Cetirizine HCl 10 MG HCl 10 MG 2-25 t} HCl 10 MG 00:00: 00 Flonase 50 Flonase 50 2020-0 No 2{spray QD Flonase 50 MCG/ACT MCG/ACT 2-25 _in_eac MCG/ACT 00:00: h_nostr 00 il} Cetirizine Cetirizine 2020- No 1{table Cetirizine HCl 10 MG HCl 10 MG 2-25 t} HCl 10 MG 00:00: 00 Flonase 50 Flonase 50 2020-0 No 2{spray QD Flonase 50 MCG/ACT MCG/ACT 2-25 _in_eac MCG/ACT 00:00: h_nostr 00 il} Cetirizine Cetirizine 2020-0 No 1{table Cetirizine HCl 10 MG HCl 10 MG 2-25 t} HCl 10 MG 00:00: 00 Flonase 50 Flonase 50 2020-0 No 2{spray QD Flonase 50 MCG/ACT MCG/ACT 2-25 _in_eac MCG/ACT 00:00: h_nostr 00 il} Flonase 50 Flonase 50 2020-0 No 2{spray QD Flonase 50 MCG/ACT MCG/ACT 2-25 _in_eac MCG/ACT 00:00: h_nostr 00 il} Cetirizine Cetirizine 2020-0 No 1{table Cetirizine HCl 10 MG HCl 10 MG 2-25 t} HCl 10 MG 00:00: 00 Flonase 50 Flonase 50 2020-0 No 2{spray QD Flonase 50 MCG/ACT MCG/ACT 2-25 _in_eac MCG/ACT 00:00: h_nostr 00 il} Cetirizine Cetirizine 2020-0 No 1{table Cetirizine HCl 10 MG HCl 10 MG 2-25 t} HCl 10 MG 00:00: 00 Flonase 50 Flonase 50 2020-0 No 2{spray QD Flonase 50 MCG/ACT MCG/ACT 2-25 _in_eac MCG/ACT 00:00: h_nostr 00 il} Cetirizine Cetirizine 2020-0 No 1{table Cetirizine HCl 10 MG HCl 10 MG 2-25 t} HCl 10 MG 00:00: 00 Cetirizine Cetirizine 2020-0 No 1{table Cetirizine HCl 10 MG HCl 10 MG 2-25 t} HCl 10 MG 00:00: 00 Flonase 50 Flonase 50 2020-0 No 2{spray QD Flonase 50 MCG/ACT MCG/ACT 2-25 _in_eac MCG/ACT 00:00: h_nostr 00 il} Cetirizine Cetirizine 2020-0 No 1{table Cetirizine HCl 10 MG HCl 10 MG 2-25 t} HCl 10 MG 00:00: 00 Flonase 50 Flonase 50 2020-0 No 2{spray QD Flonase 50 MCG/ACT MCG/ACT 2-25 _in_eac MCG/ACT 00:00: h_nostr 00 il} Cetirizine Cetirizine 2020-0 No 1{table Cetirizine HCl 10 MG HCl 10 MG 2-25 t} HCl 10 MG 00:00: 00 Flonase 50 Flonase 50 2020-0 No 2{spray QD Flonase 50 MCG/ACT MCG/ACT 2-25 _in_eac MCG/ACT 00:00: h_nostr 00 il} Cetirizine Cetirizine 2020-0 No 1{table Cetirizine HCl 10 MG HCl 10 MG 2-25 t} HCl 10 MG 00:00: 00 Flonase 50 Flonase 50 2020-0 No 2{spray QD Flonase 50 MCG/ACT MCG/ACT 2-25 _in_eac MCG/ACT 00:00: h_nostr 00 il} Cetirizine Cetirizine 2020-0 No 1{table Cetirizine HCl 10 MG HCl 10 MG 2-25 t} HCl 10 MG 00:00: 00 Flonase 50 Flonase 50 2020-0 No 2{spray QD Flonase 50 MCG/ACT MCG/ACT 2-25 _in_eac MCG/ACT 00:00: h_nostr 00 il} Cetirizine Cetirizine 2020-0 No 1{table Cetirizine HCl 10 MG HCl 10 MG 2-25 t} HCl 10 MG 00:00: 00 Zoloft Zoloft 2020-0 Yes Na Henry 1 tablet Co mmon 4-30 [facility] 00:00: - [facility] Xanax 0.25 Xanax 0.25 2020-0 No 1{table Xanax 0.25 MG MG 4-30 t} MG 00:00: 00 Xanax 0.25 Xanax 0.25 2020-0 No 1{table Xanax 0.25 MG MG 4-30 t} MG 00:00: 00 Xanax 0.25 Xanax 0.25 2020-0 No 1{table Xanax 0.25 MG MG 4-30 t} MG 00:00: 00 Xanax 0.25 Xanax 0.25 2020-0 No 1{table Xanax 0.25 MG MG 4-30 t} MG 00:00: 00 Xanax 0.25 Xanax 0.25 2020-0 No 1{table Xanax 0.25 MG MG 4-30 t} MG 00:00: 00 Xanax 0.25 Xanax 0.25 2020-0 No 1{table Xanax 0.25 MG MG 4-30 t} MG 00:00: 00 Xanax 0.25 Xanax 0.25 2020-0 No 1{table Xanax 0.25 MG MG 4-30 t} MG 00:00: 00 Zoloft 50 Zoloft 50 2020-0 No 1{table QD Zoloft 50 MG MG 4-30 t} MG 00:00: 00 Xanax 0.25 Xanax 0.25 2020-0 No 1{table Xanax 0.25 MG MG 4-30 t} MG 00:00: 00 Xanax 0.25 Xanax 0.25 2020-0 No 1{table Xanax 0.25 MG MG 4-30 t} MG 00:00: 00 Zoloft 50 Zoloft 50 2020-0 No 1{table QD Zoloft 50 MG MG 4-30 t} MG 00:00: 00 Xanax 0.25 Xanax 0.25 2020-0 No 1{table Xanax 0.25 MG MG 4-30 t} MG 00:00: 00 Zoloft 50 Zoloft 50 2020-0 No 1{table QD Zoloft 50 MG MG 4-30 t} MG 00:00: 00 Xanax 0.25 Xanax 0.25 2020-0 No 1{table Xanax 0.25 MG MG 4-30 t} MG 00:00: 00 Zoloft 50 Zoloft 50 2020-0 No 1{table QD Zoloft 50 MG MG 4-30 t} MG 00:00: 00 Xanax 0.25 Xanax 0.25 2020-0 No 1{table Xanax 0.25 MG MG 4-30 t} MG 00:00: 00 Zoloft 50 Zoloft 50 2020-0 No 1{table QD Zoloft 50 MG MG 4-30 t} MG 00:00: 00 Xanax 0.25 Xanax 0.25 2020-0 No 1{table Xanax 0.25 MG MG 4-30 t} MG 00:00: 00 Xanax 0.25 Xanax 0.25 2020-0 No 1{table Xanax 0.25 MG MG 4-30 t} MG 00:00: 00 Xanax 0.25 Xanax 0.25 2020-0 No 1{table Xanax 0.25 MG MG 4-30 t} MG 00:00: 00 Xanax 0.25 Xanax 0.25 2020-0 No 1{table Xanax 0.25 MG MG 4-30 t} MG 00:00: 00 Xanax 0.25 Xanax 0.25 2020-0 No 1{table Xanax 0.25 MG MG 4-30 t} MG 00:00: 00 Xanax 0.25 Xanax 0.25 2020-0 No 1{table Xanax 0.25 MG MG 4-30 t} MG 00:00: 00 Xanax 0.25 Xanax 0.25 2020-0 No 1{table Xanax 0.25 MG MG 4-30 t} MG 00:00: 00 Xanax 0.25 Xanax 0.25 2020-0 No 1{table Xanax 0.25 MG MG 4-30 t} MG 00:00: 00 Xanax 0.25 Xanax 0.25 2020-0 No 1{table Xanax 0.25 MG MG 4-30 t} MG 00:00: 00 Xanax 0.25 Xanax 0.25 2020-0 No 1{table Xanax 0.25 MG MG 4-30 t} MG 00:00: 00 Xanax 0.25 Xanax 0.25 2020-0 No 1{table Xanax 0.25 MG MG 4-30 t} MG 00:00: 00 Xanax 0.25 Xanax 0.25 2020-0 No 1{table Xanax 0.25 MG MG 4-30 t} MG 00:00: 00 Xanax 0.25 Xanax 0.25 2020-0 No 1{table Xanax 0.25 MG MG 4-30 t} MG 00:00: 00 Xanax 0.25 Xanax 0.25 2020-0 No 1{table Xanax 0.25 MG MG 4-30 t} MG 00:00: 00 Xanax 0.25 Xanax 0.25 2020-0 No 1{table Xanax 0.25 MG MG 4-30 t} MG 00:00: 00 Xanax 0.25 Xanax 0.25 2020-0 No 1{table Xanax 0.25 MG MG 4-30 t} MG 00:00: 00 Xanax 0.25 Xanax 0.25 2020-0 No 1{table Xanax 0.25 MG MG 4-30 t} MG 00:00: 00 Xanax 0.25 Xanax 0.25 2020-0 No 1{table Xanax 0.25 MG MG 4-30 t} MG 00:00: 00 Xanax 0.25 Xanax 0.25 2020-0 No 1{table Xanax 0.25 MG MG 4-30 t} MG 00:00: 00 Xanax 0.25 Xanax 0.25 2020-0 No 1{table Xanax 0.25 MG MG 4-30 t} MG 00:00: 00 Mometasone Mometasone 2019-0 No 2{spray QD Mometasone Furoate 50 Furoate 50 9-24 s_in_ea Furoate 50 MCG/ACT MCG/ACT 00:00: ch_nost MCG/ACT 00 ril} Mometasone Mometasone 2019-0 No 2{spray QD Mometasone Furoate 50 Furoate 50 9-24 s_in_ea Furoate 50 MCG/ACT MCG/ACT 00:00: ch_nost MCG/ACT 00 ril} Mometasone Mometasone 2019-0 No 2{spray QD Mometasone Furoate 50 Furoate 50 9-24 s_in_ea Furoate 50 MCG/ACT MCG/ACT 00:00: ch_nost MCG/ACT 00 ril} Mometasone Mometasone 2019-0 No 2{spray QD Mometasone Furoate 50 Furoate 50 9-24 s_in_ea Furoate 50 MCG/ACT MCG/ACT 00:00: ch_nost MCG/ACT 00 ril} Mometasone Mometasone 2019-0 No 2{spray QD Mometasone Furoate 50 Furoate 50 9-24 s_in_ea Furoate 50 MCG/ACT MCG/ACT 00:00: ch_nost MCG/ACT 00 ril} Mometasone Mometasone 2019-0 No 2{spray QD Mometasone Furoate 50 Furoate 50 9-24 s_in_ea Furoate 50 MCG/ACT MCG/ACT 00:00: ch_nost MCG/ACT 00 ril} Mometasone Mometasone 2019-0 No 2{spray QD Mometasone Furoate 50 Furoate 50 9-24 s_in_ea Furoate 50 MCG/ACT MCG/ACT 00:00: ch_nost MCG/ACT 00 ril} Mometasone Mometasone 2019-0 No 2{spray QD Mometasone Furoate 50 Furoate 50 9-24 s_in_ea Furoate 50 MCG/ACT MCG/ACT 00:00: ch_nost MCG/ACT 00 ril} Mometasone Mometasone 2019-0 No 2{spray QD Mometasone Furoate 50 Furoate 50 9-24 s_in_ea Furoate 50 MCG/ACT MCG/ACT 00:00: ch_nost MCG/ACT 00 ril} Mometasone Mometasone 2019-0 No 2{spray QD Mometasone Furoate 50 Furoate 50 9-24 s_in_ea Furoate 50 MCG/ACT MCG/ACT 00:00: ch_nost MCG/ACT 00 ril} Mometasone Mometasone 2019-0 No 2{spray QD Mometasone Furoate 50 Furoate 50 9-24 s_in_ea Furoate 50 MCG/ACT MCG/ACT 00:00: ch_nost MCG/ACT 00 ril} Mometasone Mometasone 2019-0 No 2{spray QD Mometasone Furoate 50 Furoate 50 9-24 s_in_ea Furoate 50 MCG/ACT MCG/ACT 00:00: ch_nost MCG/ACT 00 ril} Mometasone Mometasone 2019-0 No 2{spray QD Mometasone Furoate 50 Furoate 50 9-24 s_in_ea Furoate 50 MCG/ACT MCG/ACT 00:00: ch_nost MCG/ACT 00 ril} [email or web address] 2019-0 No 40mg Common (Triamcinol (Triamcinol 8-29 S pirit one) one) 00:00: - [facility] Boost Your Campaignalog 2019-0 No 40mg Common (Triamcinol (Triamcinol 8-29 S pirit one) one) 00:00: - [facility] Circle [employer] Circle Pharmaalog 2019-0 No 40mg Common (Triamcinol (Triamcinol 8-29 S pirit one) one) 00:00: - [facility] Boost Your Campaignalog 2018-0 No 40mg Common (Triamcinol (Triamcinol 8-29 S pirit one) one) 00:00: - [facility] Aiyana Kenalog 2019-0 No 40mg Common (Triamcinol (Triamcinol 8-29 S pirit one) one) 00:00: - [facility] Aiyana Kenalog 2019-0 No 40mg Common (Triamcinol (Triamcinol 8-29 S pirit one) one) 00:00: - [facility] Aiyana Kensuzan 2019-0 No 40mg Common (Triamcinol (Triamcinol 8-29 S pirit one) one) 00:00: - [facility] Aiyana Kensuzan 2019-0 No 40mg Common (Triamcinol (Triamcinol 8-29 S pirit one) one) 00:00: - [facility] Aiyana Kensuzan 2019-0 No 40mg Common (Triamcinol (Triamcinol 8-29 S pirit one) one) 00:00: - [facility] Aiyana Kensuzan 2019-0 No 40mg Common (Triamcinol (Triamcinol 8-29 S pirit one) one) 00:00: - [facility] Aiyana Kensuzan 2019-0 No 40mg Common (Triamcinol (Triamcinol 8-29 S pirit one) one) 00:00: - [facility] Aiyana Kensuzan 2019-0 No 40mg Common (Triamcinol (Triamcinol 8-29 S pirit one) one) 00:00: - [facility] Nebulizer/T Nebulizer/T 2019-0 No Nebulizer/ ubing/Mouth ubing/Mouth 5-24 Tubing/Sumaya piece - piece - 00:00: thpiece Nebulizer/T Nebulizer/T 2018-0 No Nebulizer/ ubing/Mouth ubing/Mouth 5-24 Tubing/Sumaya piece - piece - 00:00: thpiece Nebulizer/T Nebulizer/T 2018-0 No Nebulizer/ ubing/Mouth ubing/Mouth 5-24 Tubing/Sumaya piece - piece - 00:00: thpiece Nebulizer/T Nebulizer/T No Nebulizer/ ubing/Mouth ubing/Mouth 5-24 Tubing/Sumaya piece - piece - 00:00: thp Nebulizer/T Nebulizer/T 0 No Nebulizer/ ubing/Mouth ubing/Mouth 5-24 Tubing/Sumaya piece - piece - 00:00: Nebulizer/T Nebulizer/T 0 No Nebulizer/ ubing/Mouth ubing/Mouth 5-24 Tubing/Sumaya piece - piece - 00:00: Nebulizer/T Nebulizer/T No Nebulizer/ ubing/Mouth ubing/Mouth 5-24 Tubing/Sumaya piece - piece - 00:00: Nebulizer/T Nebulizer/T 0 No Nebulizer/ ubing/Mouth ubing/Mouth 5-24 Tubing/Sumaya piece - piece - 00:00: Nebulizer/T Nebulizer/T 0 No Nebulizer/ ubing/Mouth ubing/Mouth 5-24 Tubing/Sumaya piece - piece - 00:00: Nebulizer/T Nebulizer/T 0 No Nebulizer/ ubing/Mouth ubing/Mouth 5-24 Tubing/Sumaya piece - piece - 00:00: Nebulizer/T Nebulizer/T 0 No Nebulizer/ ubing/Mouth ubing/Mouth 5-24 Tubing/Sumaya piece - piece - 00:00: Nebulizer/T Nebulizer/T 0 No Nebulizer/ ubing/Mouth ubing/Mouth 5-24 Tubing/Sumaya piece - piece - 00:00: Nebulizer/T Nebulizer/T 0 No Nebulizer/ ubing/Mouth ubing/Mouth 5-24 Tubing/Sumaya piece - piece - 00:00: Nebulizer/T Nebulizer/T 0 No Nebulizer/ ubing/Mouth ubing/Mouth 5-24 Tubing/Sumaya piece - piece - 00:00: Nebulizer/T Nebulizer/T 0 No Nebulizer/ ubing/Mouth ubing/Mouth 5-24 Tubing/Sumaya piece - piece - 00:00: Nebulizer/T Nebulizer/T 0 No Nebulizer/ ubing/Mouth ubing/Mouth 5-24 Tubing/Sumaya piece - piece - 00:00: Nebulizer/T Nebulizer/T 0 No Nebulizer/ ubing/Mouth ubing/Mouth 5-24 Tubing/Sumaya piece - piece - 00:00: thp Nebulizer/T Nebulizer/T 0 No Nebulizer/ ubing/Mouth ubing/Mouth 5-24 Tubing/Sumaya piece - piece - 00:00: Nebulizer/T Nebulizer/T 0 No Nebulizer/ ubing/Mouth ubing/Mouth 5-24 Tubing/Sumaya piece - piece - 00:00: Nebulizer/T Nebulizer/T 0 No Nebulizer/ ubing/Mouth ubing/Mouth 5-24 Tubing/Sumaya piece - piece - 00:00: Nebulizer/T Nebulizer/T 0 No Nebulizer/ ubing/Mouth ubing/Mouth 5-24 Tubing/Sumaya piece - piece - 00:00: Nebulizer/T Nebulizer/T 0 No Nebulizer/ ubing/Mouth ubing/Mouth 5-24 Tubing/Sumaya piece - piece - 00:00: Nebulizer/T Nebulizer/T 0 No Nebulizer/ ubing/Mouth ubing/Mouth 5-24 Tubing/Sumaya piece - piece - 00:00: Nebulizer/T Nebulizer/T 0 No Nebulizer/ ubing/Mouth ubing/Mouth 5-24 Tubing/Sumaya piece - piece - 00:00: Nebulizer/T Nebulizer/T 0 No Nebulizer/ ubing/Mouth ubing/Mouth 5-24 Tubing/Sumaya piece - piece - 00:00: Nebulizer/T Nebulizer/T 0 No Nebulizer/ ubing/Mouth ubing/Mouth 5-24 Tubing/Sumaya piece - piece - 00:00: thp Nebulizer/T Nebulizer/T 2019-0 No Nebulizer/ ubing/Mouth ubing/Mouth 5-24 Tubing/Sumaya piece - piece - 00:00: Nebulizer/T Nebulizer/T No Nebulizer/ ubing/Mouth ubing/Mouth 5-24 Tubing/Sumaya piece - piece - 00:00: Nebulizer/T Nebulizer/T No Nebulizer/ ubing/Mouth ubing/Mouth 5-24 Tubing/Sumaya piece - piece - 00:00: Nebulizer/T Nebulizer/T No Nebulizer/ ubing/Mouth ubing/Mouth 5-24 Tubing/Sumaya piece - piece - 00:00: Nebulizer/T Nebulizer/T No Nebulizer/ ubing/Mouth ubing/Mouth 5-24 Tubing/Sumaya piece - piece - 00:00: Nebulizer/T Nebulizer/T No Nebulizer/ ubing/Mouth ubing/Mouth 5-24 Tubing/Sumaya piece - piece - 00:00: Flonase 50 Flonase 50 No 2{spray QD Flonase 50 MCG/ACT MCG/ACT 5-23 _in_eac MCG/ACT 00:00: h_nostr 00 il} Albuterol Albuterol No 3{ml_as TID Albuterol Sulfate Sulfate 5-23 _needed Sulfate (2.5 (2.5 00:00: } (2.5 MG/3ML) MG/3ML) 00 MG/3ML) 0.083% 0.083% 0.083% Zyrtec Zyrtec No 1{table QD Zyrtec Allergy 10 Allergy 10 5-23 t} Allergy 10 MG MG 00:00: MG 00 Zyrtec Zyrtec No 1{table QD Zyrtec Allergy 10 Allergy 10 5-23 t} Allergy 10 MG MG 00:00: MG 00 Flonase 50 Flonase 50 No 2{spray QD Flonase 50 MCG/ACT MCG/ACT 5-23 _in_eac MCG/ACT 00:00: h_nostr 00 il} Albuterol Albuterol No 3{ml_as TID Albuterol Sulfate Sulfate 5-23 _needed Sulfate (2.5 (2.5 00:00: } (2.5 MG/3ML) MG/3ML) 00 MG/3ML) 0.083% 0.083% 0.083% [facility] No 1{table QD Zyrtec Allergy 10 Allergy 10 5-23 t} Allergy 10 MG MG 00:00: MG 00 Flonase 50 Flonase 50 No 2{spray QD Flonase 50 MCG/ACT MCG/ACT 5-23 _in_eac MCG/ACT 00:00: h_nostr 00 il} Albuterol Albuterol No 3{ml_as TID Albuterol Sulfate Sulfate 5-23 _needed Sulfate (2.5 (2.5 00:00: } (2.5 MG/3ML) MG/3ML) 00 MG/3ML) 0.083% 0.083% 0.083% [facility] No 1{table QD Zyrtec Allergy 10 Allergy 10 5-23 t} Allergy 10 MG MG 00:00: MG 00 Flonase 50 Flonase 50 No 2{spray QD Flonase 50 MCG/ACT MCG/ACT 5-23 _in_eac MCG/ACT 00:00: h_nostr 00 il} Albuterol Albuterol No 3{ml_as TID Albuterol Sulfate Sulfate 5-23 _needed Sulfate (2.5 (2.5 00:00: } (2.5 MG/3ML) MG/3ML) 00 MG/3ML) 0.083% 0.083% 0.083% Flonase 50 Flonase 50 No 2{spray QD Flonase 50 MCG/ACT MCG/ACT 5-23 _in_eac MCG/ACT 00:00: h_nostr 00 il} Albuterol Albuterol No 3{ml_as TID Albuterol Sulfate Sulfate 5-23 _needed Sulfate (2.5 (2.5 00:00: } (2.5 MG/3ML) MG/3ML) 00 MG/3ML) 0.083% 0.083% 0.083% Zyrtec Zyrtec No 1{table QD Zyrtec Allergy 10 Allergy 10 5-23 t} Allergy 10 MG MG 00:00: MG 00 Flonase 50 Flonase 50 No 2{spray QD Flonase 50 MCG/ACT MCG/ACT 5-23 _in_eac MCG/ACT 00:00: h_nostr 00 il} Albuterol Albuterol No 3{ml_as TID Albuterol Sulfate Sulfate 5-23 _needed Sulfate (2.5 (2.5 00:00: } (2.5 MG/3ML) MG/3ML) 00 MG/3ML) 0.083% 0.083% 0.083% Zyrtec Zyrtec No 1{table QD Zyrtec Allergy 10 Allergy 10 5-23 t} Allergy 10 MG MG 00:00: MG 00 Flonase 50 Flonase 50 No 2{spray QD Flonase 50 MCG/ACT MCG/ACT 5-23 _in_eac MCG/ACT 00:00: h_nostr 00 il} Albuterol Albuterol No 3{ml_as TID Albuterol Sulfate Sulfate 5-23 _needed Sulfate (2.5 (2.5 00:00: } (2.5 MG/3ML) MG/3ML) 00 MG/3ML) 0.083% 0.083% 0.083% Zyrtec Zyrtec No 1{table QD Zyrtec Allergy 10 Allergy 10 5-23 t} Allergy 10 MG MG 00:00: MG 00 Albuterol Albuterol No 3{ml_as TID Albuterol Sulfate Sulfate 5-23 _needed Sulfate (2.5 (2.5 00:00: } (2.5 MG/3ML) MG/3ML) 00 MG/3ML) 0.083% 0.083% 0.083% ZyrTEC ZyrTEC No 1{table QD ZyrTEC Allergy 10 Allergy 10 5-23 t} Allergy 10 MG MG 00:00: MG 00 Flonase 50 Flonase 50 No 2{spray QD Flonase 50 MCG/ACT MCG/ACT 5-23 _in_eac MCG/ACT 00:00: h_nostr 00 il} Flonase 50 Flonase 50 No 2{spray QD Flonase 50 MCG/ACT MCG/ACT 5-23 _in_eac MCG/ACT 00:00: h_nostr 00 il} Albuterol Albuterol No 3{ml_as TID Albuterol Sulfate Sulfate 5-23 _needed Sulfate (2.5 (2.5 00:00: } (2.5 MG/3ML) MG/3ML) 00 MG/3ML) 0.083% 0.083% 0.083% ZyrTEC ZyrTEC No 1{table QD ZyrTEC Allergy 10 Allergy 10 5-23 t} Allergy 10 MG MG 00:00: MG 00 Flonase 50 Flonase 50 No 2{spray QD Flonase 50 MCG/ACT MCG/ACT 5-23 _in_eac MCG/ACT 00:00: h_nostr 00 il} Albuterol Albuterol No 3{ml_as TID Albuterol Sulfate Sulfate 5-23 _needed Sulfate (2.5 (2.5 00:00: } (2.5 MG/3ML) MG/3ML) 00 MG/3ML) 0.083% 0.083% 0.083% ZyrTEC ZyrTEC No 1{table QD ZyrTEC Allergy 10 Allergy 10 5-23 t} Allergy 10 MG MG 00:00: MG 00 Flonase 50 Flonase 50 No 2{spray QD Flonase 50 MCG/ACT MCG/ACT 5-23 _in_eac MCG/ACT 00:00: h_nostr 00 il} Albuterol Albuterol No 3{ml_as TID Albuterol Sulfate Sulfate 5-23 _needed Sulfate (2.5 (2.5 00:00: } (2.5 MG/3ML) MG/3ML) 00 MG/3ML) 0.083% 0.083% 0.083% ZyrTEC ZyrTEC No 1{table QD [facility] Allergy 10 Allergy 10 5-23 t} Allergy 10 MG MG 00:00: MG 00 Flonase 50 Flonase 50 2019- No 2{spray QD Flonase 50 MCG/ACT MCG/ACT 5-23 _in_eac MCG/ACT 00:00: h_nostr 00 il} Albuterol Albuterol No 3{ml_as TID Albuterol Sulfate Sulfate 5-23 _needed Sulfate (2.5 (2.5 00:00: } (2.5 MG/3ML) MG/3ML) 00 MG/3ML) 0.083% 0.083% 0.083% [facility] No 1{table QD [facility] Allergy 10 Allergy 10 5-23 t} Allergy 10 MG MG 00:00: MG 00 Albuterol Albuterol No 3{ml_as TID Albuterol Sulfate Sulfate 5-23 _needed Sulfate (2.5 (2.5 00:00: } (2.5 MG/3ML) MG/3ML) 00 MG/3ML) 0.083% 0.083% 0.083% Albuterol Albuterol No 3{ml_as TID Albuterol Sulfate Sulfate 5-23 _needed Sulfate (2.5 (2.5 00:00: } (2.5 MG/3ML) MG/3ML) 00 MG/3ML) 0.083% 0.083% 0.083% Albuterol Albuterol No 3{ml_as TID Albuterol Sulfate Sulfate 5-23 _needed Sulfate (2.5 (2.5 00:00: } (2.5 MG/3ML) MG/3ML) 00 MG/3ML) 0.083% 0.083% 0.083% Albuterol Albuterol No 3{ml_as TID Albuterol Sulfate Sulfate 5-23 _needed Sulfate (2.5 (2.5 00:00: } (2.5 MG/3ML) MG/3ML) 00 MG/3ML) 0.083% 0.083% 0.083% Albuterol Albuterol 2018-0 No 3{ml_as TID Albuterol Sulfate Sulfate 5-23 _needed Sulfate (2.5 (2.5 00:00: } (2.5 MG/3ML) MG/3ML) 00 MG/3ML) 0.083% 0.083% 0.083% Albuterol Albuterol 2018-0 No 3{ml_as TID Albuterol Sulfate Sulfate 5-23 _needed Sulfate (2.5 (2.5 00:00: } (2.5 MG/3ML) MG/3ML) 00 MG/3ML) 0.083% 0.083% 0.083% Albuterol Albuterol 0 No 3{ml_as TID Albuterol Sulfate Sulfate 5-23 _needed Sulfate (2.5 (2.5 00:00: } (2.5 MG/3ML) MG/3ML) 00 MG/3ML) 0.083% 0.083% 0.083% Albuterol Albuterol 0 No 3{ml_as TID Albuterol Sulfate Sulfate 5-23 _needed Sulfate (2.5 (2.5 00:00: } (2.5 MG/3ML) MG/3ML) 00 MG/3ML) 0.083% 0.083% 0.083% Albuterol Albuterol 0 No 3{ml_as TID Albuterol Sulfate Sulfate 5-23 _needed Sulfate (2.5 (2.5 00:00: } (2.5 MG/3ML) MG/3ML) 00 MG/3ML) 0.083% 0.083% 0.083% Albuterol Albuterol 0 No 3{ml_as TID Albuterol Sulfate Sulfate 5-23 _needed Sulfate (2.5 (2.5 00:00: } (2.5 MG/3ML) MG/3ML) 00 MG/3ML) 0.083% 0.083% 0.083% Albuterol Albuterol 0 No 3{ml_as TID Albuterol Sulfate Sulfate 5-23 _needed Sulfate (2.5 (2.5 00:00: } (2.5 MG/3ML) MG/3ML) 00 MG/3ML) 0.083% 0.083% 0.083% Albuterol Albuterol 2018-0 No 3{ml_as TID Albuterol Sulfate Sulfate 5-23 _needed Sulfate (2.5 (2.5 00:00: } (2.5 MG/3ML) MG/3ML) 00 MG/3ML) 0.083% 0.083% 0.083% Albuterol Albuterol 0 No 3{ml_as TID Albuterol Sulfate Sulfate 5-23 _needed Sulfate (2.5 (2.5 00:00: } (2.5 MG/3ML) MG/3ML) 00 MG/3ML) 0.083% 0.083% 0.083% Albuterol Albuterol 0 No 3{ml_as TID Albuterol Sulfate Sulfate 5-23 _needed Sulfate (2.5 (2.5 00:00: } (2.5 MG/3ML) MG/3ML) 00 MG/3ML) 0.083% 0.083% 0.083% Albuterol Albuterol 0 No 3{ml_as TID Albuterol Sulfate Sulfate 5-23 _needed Sulfate (2.5 (2.5 00:00: } (2.5 MG/3ML) MG/3ML) 00 MG/3ML) 0.083% 0.083% 0.083% Albuterol Albuterol 0 No 3{ml_as TID Albuterol Sulfate Sulfate 5-23 _needed Sulfate (2.5 (2.5 00:00: } (2.5 MG/3ML) MG/3ML) 00 MG/3ML) 0.083% 0.083% 0.083% Albuterol Albuterol 0 No 3{ml_as TID Albuterol Sulfate Sulfate 5-23 _needed Sulfate (2.5 (2.5 00:00: } (2.5 MG/3ML) MG/3ML) 00 MG/3ML) 0.083% 0.083% 0.083% Albuterol Albuterol 0 No 3{ml_as TID Albuterol Sulfate Sulfate 5-23 _needed Sulfate (2.5 (2.5 00:00: } (2.5 MG/3ML) MG/3ML) 00 MG/3ML) 0.083% 0.083% 0.083% Albuterol Albuterol No 3{ml_as TID Albuterol Sulfate Sulfate 5-23 _needed Sulfate (2.5 (2.5 00:00: } (2.5 MG/3ML) MG/3ML) 00 MG/3ML) 0.083% 0.083% 0.083% Flonase 50 Flonase 50 No 2{spray QD Flonase 50 MCG/ACT MCG/ACT 5-23 _in_eac MCG/ACT 00:00: h_nostr 00 il} Albuterol Albuterol No 3{ml_as TID Albuterol Sulfate Sulfate 5-23 _needed Sulfate (2.5 (2.5 00:00: } (2.5 MG/3ML) MG/3ML) 00 MG/3ML) 0.083% 0.083% 0.083% Zyrtec Zyrtec No 1{table QD Zyrtec Allergy 10 Allergy 10 5-23 t} Allergy 10 MG MG 00:00: MG 00 Norethin Norethin No 1{table QD Norethin Sohail-Eth Sohail-Eth 4-23 t} Sohail-Eth Estrad-FE Estrad-FE 00:00: Estrad-FE 1-20 12-20 00 1-20 MG-MCG(24) MG-MCG(24) MG-MCG(24) Norethin Norethin No 1{table QD Norethin Sohail-Eth Sohail-Eth 4-23 t} Sohail-Eth Estrad-FE Estrad-FE 00:00: Estrad-FE 1-20 20 00 1-20 MG-MCG(24) MG-MCG(24) MG-MCG(24) Norethin Norethin No 1{table QD Norethin Sohail-Eth Sohail-Eth 4-23 t} Sohail-Eth Estrad-FE Estrad-FE 00:00: Estrad-FE 1-20 1-20 00 1-20 MG-MCG(24) MG-MCG(24) MG-MCG(24) Norethin Norethin 2019-0 No 1{table QD Norethin Sohail-Eth Sohail-Eth 4-23 t} Sohail-Eth Estrad-FE Estrad-FE 00:00: Estrad-FE 1-20 1-20 00 1-20 MG-MCG(24) MG-MCG(24) MG-MCG(24) Norethin Norethin 2018-0 No 1{table QD Norethin Sohail-Eth Sohail-Eth 4-23 t} Sohail-Eth Estrad-FE Estrad-FE 00:00: Estrad-FE 1-20 1-20 00 1-20 MG-MCG(24) MG-MCG(24) MG-MCG(24) Norethin Norethin 2018-0 No 1{table QD Norethin Sohail-Eth Sohail-Eth 4-23 t} Sohail-Eth Estrad-FE Estrad-FE 00:00: Estrad-FE 1-20 1-20 00 1-20 MG-MCG(24) MG-MCG(24) MG-MCG(24) Norethin Norethin 2018-0 No 1{table QD Norethin Sohail-Eth Oshail-Eth 4-23 t} Sohail-Eth Estrad-FE Estrad-FE 00:00: Estrad-FE 1-20 1-20 00 1-20 MG-MCG(24) MG-MCG(24) MG-MCG(24) Norethin Norethin 2019-0 No 1{table QD Norethin Sohail-Eth Sohail-Eth 4-23 t} Sohail-Eth Estrad-FE Estrad-FE 00:00: Estrad-FE 1-20 1-20 00 1-20 MG-MCG(24) MG-MCG(24) MG-MCG(24) Norethin Norethin 2019-0 No 1{table QD Norethin Sohail-Eth Sohail-Eth 4-23 t} Sohail-Eth Estrad-FE Estrad-FE 00:00: Estrad-FE 1-20 1-20 00 1-20 MG-MCG(24) MG-MCG(24) MG-MCG(24) Norethin Norethin 2019-0 No 1{table QD Norethin Sohail-Eth Sohail-Eth 4-23 t} Sohail-Eth Estrad-FE Estrad-FE 00:00: Estrad-FE 1-20 1-20 00 1-20 MG-MCG(24) MG-MCG(24) MG-MCG(24) Norethin Norethin 20190 No 1{table QD Norethin Sohail-Eth Sohail-Eth 4-23 t} Sohail-Eth Estrad-FE Estrad-FE 00:00: Estrad-FE 1-20 1-20 00 1-20 MG-MCG(24) MG-MCG(24) MG-MCG(24) Norethin Norethin No 1{table QD Norethin Sohail-Eth Sohail-Eth 4-23 t} Sohail-Eth Estrad-FE Estrad-FE 00:00: Estrad-FE 1-20 1-20 00 1-20 MG-MCG(24) MG-MCG(24) MG-MCG(24) Norethin Norethin 0 No 1{table QD Norethin Sohail-Eth Sohail-Eth 4-23 t} Sohail-Eth Estrad-FE Estrad-FE 00:00: Estrad-FE 1-20 1-20 00 1-20 MG-MCG(24) MG-MCG(24) MG-MCG(24) ProAir HFA ProAir HFA No 2{puffs ProAir HFA 108 (90 108 (90 2-13 _as_nee 108 (90 Base) Base) 00:00: ded} Base) MCG/ACT MCG/ACT 00 MCG/ACT ProAir HFA ProAir HFA No 2{puffs ProAir HFA 108 (90 108 (90 2-13 _as_nee 108 (90 Base) Base) 00:00: ded} Base) MCG/ACT MCG/ACT 00 MCG/ACT ProAir HFA ProAir HFA No 2{puffs ProAir HFA 108 (90 108 (90 2-13 _as_nee 108 (90 Base) Base) 00:00: ded} Base) MCG/ACT MCG/ACT 00 MCG/ACT ProAir HFA ProAir HFA No 2{puffs ProAir HFA 108 (90 108 (90 2-13 _as_nee 108 (90 Base) Base) 00:00: ded} Base) MCG/ACT MCG/ACT 00 MCG/ACT ProAir HFA ProAir HFA No 2{puffs ProAir HFA 108 (90 108 (90 2-13 _as_nee 108 (90 Base) Base) 00:00: ded} Base) MCG/ACT MCG/ACT 00 MCG/ACT ProAir HFA ProAir HFA No 2{puffs ProAir HFA 108 (90 108 (90 2-13 _as_nee 108 (90 Base) Base) 00:00: ded} Base) MCG/ACT MCG/ACT 00 MCG/ACT ProAir HFA ProAir HFA No 2{puffs ProAir HFA 108 (90 108 (90 2-13 _as_nee 108 (90 Base) Base) 00:00: ded} Base) MCG/ACT MCG/ACT 00 MCG/ACT ProAir HFA ProAir HFA No 2{puffs ProAir HFA 108 (90 108 (90 2-13 _as_nee 108 (90 Base) Base) 00:00: ded} Base) MCG/ACT MCG/ACT 00 MCG/ACT ProAir HFA ProAir HFA No 2{puffs ProAir HFA 108 (90 108 (90 2-13 _as_nee 108 (90 Base) Base) 00:00: ded} Base) MCG/ACT MCG/ACT 00 MCG/ACT ProAir HFA ProAir HFA No 2{puffs ProAir HFA 108 (90 108 (90 2-13 _as_nee 108 (90 Base) Base) 00:00: ded} Base) MCG/ACT MCG/ACT 00 MCG/ACT ProAir HFA ProAir HFA No 2{puffs ProAir HFA 108 (90 108 (90 2-13 _as_nee 108 (90 Base) Base) 00:00: ded} Base) MCG/ACT MCG/ACT 00 MCG/ACT ProAir HFA ProAir HFA No 2{puffs ProAir HFA 108 (90 108 (90 2-13 _as_nee 108 (90 Base) Base) 00:00: ded} Base) MCG/ACT MCG/ACT 00 MCG/ACT ProAir HFA ProAir HFA No 2{puffs ProAir HFA 108 (90 108 (90 2-13 _as_nee 108 (90 Base) Base) 00:00: ded} Base) MCG/ACT MCG/ACT 00 MCG/ACT Azithromyci Azithromyci No QD Azithromyc n 500 MG n 500 MG in 500 MG Belviq XR Belviq XR No 1{table QD Belviq XR 20 MG 20 MG t} 20 MG Azithromyci Azithromyci No QD Azithromyc n 500 MG n 500 MG in 500 MG Belviq XR Belviq XR No 1{table QD Belviq XR 20 MG 20 MG t} 20 MG Azithromyci Azithromyci No QD Azithromyc n 500 MG n 500 MG in 500 MG Belviq XR Belviq XR No 1{table QD Belviq XR 20 MG 20 MG t} 20 MG Belviq XR Belviq XR No 1{table QD Belviq XR 20 MG 20 MG t} 20 MG Azithromyci Azithromyci No QD Azithromyc n 500 MG n 500 MG in 500 MG Azithromyci Azithromyci No QD Azithromyc n 500 MG n 500 MG in 500 MG Belviq XR Belviq XR No 1{table QD Belviq XR 20 MG 20 MG t} 20 MG Azithromyci Azithromyci No QD Azithromyc n 500 MG n 500 MG in 500 MG Belviq XR Belviq XR No 1{table QD Belviq XR 20 MG 20 MG t} 20 MG Azithromyci Azithromyci No QD Azithromyc n 500 MG n 500 MG in 500 MG Belviq XR Belviq XR No 1{table QD Belviq XR 20 MG 20 MG t} 20 MG Belviq XR Belviq XR No 1{table QD Belviq XR 20 MG 20 MG t} 20 MG Azithromyci Azithromyci No QD Azithromyc n 500 MG n 500 MG in 500 MG Belviq XR Belviq XR No 1{table QD Belviq XR 20 MG 20 MG t} 20 MG Azithromyci Azithromyci No QD Azithromyc n 500 MG n 500 MG in 500 MG Belviq XR Belviq XR No 1{table QD Belviq XR 20 MG 20 MG t} 20 MG Azithromyci Azithromyci No QD Azithromyc n 500 MG n 500 MG in 500 MG Belviq XR Belviq XR No 1{table QD Belviq XR 20 MG 20 MG t} 20 MG Azithromyci Azithromyci No QD Azithromyc n 500 MG n 500 MG in 500 MG Belviq XR Belviq XR No 1{table QD Belviq XR 20 MG 20 MG t} 20 MG Azithromyci Azithromyci No QD Azithromyc n 500 MG n 500 MG in 500 MG Contrave Contrave No 2{table BID Contrave 8-90 MG 8-90 MG ts} 8-90 MG Zoloft 25 Zoloft 25 No 1{table QD Zoloft 25 MG MG t} MG Contrave Contrave No 2{table BID Contrave 8-90 MG 8-90 MG ts} 8-90 MG Zoloft 25 Zoloft 25 No 1{table QD Zoloft 25 MG MG t} MG Contrave Contrave No 2{table BID Contrave 8-90 MG 8-90 MG ts} 8-90 MG Zoloft 25 Zoloft 25 No 1{table QD Zoloft 25 MG MG t} MG Contrave Contrave No 2{table BID Contrave 8-90 MG 8-90 MG ts} 8-90 MG Zoloft 25 Zoloft 25 No 1{table QD Zoloft 25 MG MG t} MG Contrave Contrave No 2{table BID Contrave 8-90 MG 8-90 MG ts} 8-90 MG Contrave Contrave No 2{table BID Contrave 8-90 MG 8-90 MG ts} 8-90 MG Contrave Contrave No 2{table BID Contrave 8-90 MG 8-90 MG ts} 8-90 MG Contrave Contrave No 2{table BID Contrave 8-90 MG 8-90 MG ts} 8-90 MG Azelastine Azelastine No 1{puff_ BID Azelastine HCl 137 HCl 137 in_each HCl 137 MCG/SPRAY MCG/SPRAY _nostri MCG/SPRAY l} Fluticasone Fluticasone No 1{spray QD Fluticason Propionate Propionate _in_eac e 50 MCG/ACT 50 MCG/ACT h_nostr Propionate il} 50 MCG/ACT Contrave Contrave No 2{table BID Contrave 8-90 MG 8-90 MG ts} 8-90 MG Azelastine Azelastine No 1{puff_ BID Azelastine HCl 137 HCl 137 in_each HCl 137 MCG/SPRAY MCG/SPRAY _nostri MCG/SPRAY l} Fluticasone Fluticasone No 1{spray QD Fluticason Propionate Propionate _in_eac e 50 MCG/ACT 50 MCG/ACT h_nostr Propionate il} 50 MCG/ACT Contrave Contrave No 2{table BID Contrave 8-90 MG 8-90 MG ts} 8-90 MG Azelastine Azelastine No 1{puff_ BID Azelastine HCl 137 HCl 137 in_each HCl 137 MCG/SPRAY MCG/SPRAY _nostri MCG/SPRAY l} Fluticasone Fluticasone No 1{spray QD Fluticason Propionate Propionate _in_eac e 50 MCG/ACT 50 MCG/ACT h_nostr Propionate il} 50 MCG/ACT Contrave Contrave No 2{table BID Contrave 8-90 MG 8-90 MG ts} 8-90 MG Azelastine Azelastine No 1{puff_ BID Azelastine HCl 137 HCl 137 in_each HCl 137 MCG/SPRAY MCG/SPRAY _nostri MCG/SPRAY l} Fluticasone Fluticasone No 1{spray QD Fluticason Propionate Propionate _in_eac e 50 MCG/ACT 50 MCG/ACT h_nostr Propionate il} 50 MCG/ACT Contrave Contrave No 2{table BID Contrave 8-90 MG 8-90 MG ts} 8-90 MG Fluticasone Fluticasone No 1{spray QD Fluticason Propionate Propionate _in_eac e 50 MCG/ACT 50 MCG/ACT h_nostr Propionate il} 50 MCG/ACT Contrave Contrave No 2{table BID Contrave 8-90 MG 8-90 MG ts} 8-90 MG Azelastine Azelastine No 1{puff_ BID Azelastine HCl 137 HCl 137 in_each HCl 137 MCG/SPRAY MCG/SPRAY _nostri MCG/SPRAY l} Azelastine Azelastine No 1{puff_ BID Azelastine HCl 137 HCl 137 in_each HCl 137 MCG/SPRAY MCG/SPRAY _nostri MCG/SPRAY l} Fluticasone Fluticasone No 1{spray QD Fluticason Propionate Propionate _in_eac e 50 MCG/ACT 50 MCG/ACT h_nostr Propionate il} 50 MCG/ACT Contrave Contrave No 2{table BID Contrave 8-90 MG 8-90 MG ts} 8-90 MG Flonase 50 Flonase 50 No 1{spray QD Flonase 50 MCG/ACT MCG/ACT _in_eac MCG/ACT h_nostr il} Azelastine Azelastine No 1{puff_ BID Azelastine HCl 137 HCl 137 in_each HCl 137 MCG/SPRAY MCG/SPRAY _nostri MCG/SPRAY l} Fluticasone Fluticasone No 1{spray QD Fluticason Propionate Propionate _in_eac e 50 MCG/ACT 50 MCG/ACT h_nostr Propionate il} 50 MCG/ACT Contrave Contrave No 2{table BID Contrave 8-90 MG 8-90 MG ts} 8-90 MG Flonase 50 Flonase 50 No 1{spray QD Flonase 50 MCG/ACT MCG/ACT _in_eac MCG/ACT h_nostr il} Azelastine Azelastine No 1{puff_ BID Azelastine HCl 137 HCl 137 in_each HCl 137 MCG/SPRAY MCG/SPRAY _nostri MCG/SPRAY l} Fluticasone Fluticasone No 1{spray QD Fluticason Propionate Propionate _in_eac e 50 MCG/ACT 50 MCG/ACT h_nostr Propionate il} 50 MCG/ACT Contrave Contrave No 2{table BID Contrave 8-90 MG 8-90 MG ts} 8-90 MG Flonase 50 Flonase 50 No 1{spray QD Flonase 50 MCG/ACT MCG/ACT _in_eac MCG/ACT h_nostr il} Azelastine Azelastine No 1{puff_ BID Azelastine HCl 137 HCl 137 in_each HCl 137 MCG/SPRAY MCG/SPRAY _nostri MCG/SPRAY l} Fluticasone Fluticasone No 1{spray QD Fluticason Propionate Propionate _in_eac e 50 MCG/ACT 50 MCG/ACT h_nostr Propionate il} 50 MCG/ACT Contrave Contrave No 2{table BID Contrave 8-90 MG 8-90 MG ts} 8-90 MG Flonase 50 Flonase 50 No 1{spray QD Flonase 50 MCG/ACT MCG/ACT _in_eac MCG/ACT h_nostr il} Azelastine Azelastine No 1{puff_ BID Azelastine HCl 137 HCl 137 in_each HCl 137 MCG/SPRAY MCG/SPRAY _nostri MCG/SPRAY l} Fluticasone Fluticasone No 1{spray QD Fluticason Propionate Propionate _in_eac e 50 MCG/ACT 50 MCG/ACT h_nostr Propionate il} 50 MCG/ACT Contrave Contrave No 2{table BID Contrave 8-90 MG 8-90 MG ts} 8-90 MG Flonase 50 Flonase 50 No 1{spray QD Flonase 50 MCG/ACT MCG/ACT _in_eac MCG/ACT h_nostr il} Flonase 50 Flonase 50 No 1{spray QD Flonase 50 MCG/ACT MCG/ACT _in_eac MCG/ACT h_nostr il} Fluticasone Fluticasone No 1{spray QD Fluticason Propionate Propionate _in_eac e 50 MCG/ACT 50 MCG/ACT h_nostr Propionate il} 50 MCG/ACT Azelastine Azelastine No 1{puff_ BID Azelastine HCl 137 HCl 137 in_each HCl 137 MCG/SPRAY MCG/SPRAY _nostri MCG/SPRAY l} Contrave Contrave No 2{table BID Contrave 8-90 MG 8-90 MG ts} 8-90 MG Azithromyci Azithromyci No QD Azithromyc n 500 MG n 500 MG in 500 MG Belviq XR Belviq XR No 1{table QD Belviq XR 20 MG 20 MG t} 20 MG Immunizations Ordered Immunization Filled Immunization Date Status Commen ts Source Name Name Nhan FORDID-19 [place]han COVID-19 2022-01-16 Completed [facility] (Low [facility]ose Vaccine (Low Dose 08:59:[address] - [facility] Booster) Booster) [facility] COVID-19 [place] COVID-19 2022-01-16 Completed [facility] Vaccine (Low Dose Vaccine (Low Dose 08:59:[address] - [facility] Booster) Booster) [facility] [address] COVID19 2022-01-16 Completed [facility] (Low Dose Vaccine (Low Dose 08:59:[address] - [facility] Booster) Booster) [facility] [address] COVID19 2022-01-16 Completed [facility] (Low Dose Vaccine (Low Dose 08:59:[facility] - [facility] Booster) Booster) [facility] COVID[address] [facility] Com[facility] (Low Dose Vaccine (Low Dose 08:59:00 - [facility] Booster) Booster) [facility] COVID[address] [facility] Com[facility] (Low Dose Vaccine (Low Dose 08:59:00 - [facility] Booster) Booster) [facility] [address] [facility] Com[facility] Vacc[facility] (Low Dose Vaccine (Low Dose 08:59:00 - [facility] Booster) Booster) [facility] [address] [facility] Com[facility] Vaccine (Low Dose Vaccine (Low Dose 08:59:00 - [facility] Booster) Booster) [facility] [address] [facility] Com[facility] Vaccine (Low Dose Vaccine (Low Dose 08:59:00 - [facility] Booster) Booster) [facility] [address] [facility] Com[facility] Vaccine (Low Dose Vaccine (Low Dose 08:59:00 - [facility] Booster) Booster) [facility] [address] [facility] Com[facility] Vaccine (Low Dose Vaccine (Low Dose 08:59:00 - [facility] Booster) Booster) [facility] [address] COVID19 2022-01-16 Completed [facility] Vaccine (Low Dose Vaccine (Low Dose 08:59:00 - [facility] Booster) Booster) [facility] [address] [facility]16 Com[facility] (Low Dose Vaccine (Low Dose 08:59:00 - [facility] Booster) Booster) [facility] Afluria Afluria 2021-09-07 Completed [facility] 09:59:00 [facility] Afluria Afluria 2021-09-07 Completed [facility] 09:59:00 [facility] Afluria Afluria 2021-09-07 Completed [facility] 09:59:00 [facility] Afluria Afluria 2021-09-07 Completed [facility] 09:59:00 [facility] Afluria Afluria 2021-09-07 Completed [facility] 09:59:00 [facility] Afluria Afluria 2021-09-07 Completed [facility] 09:59:00 [facility] Afluria Afluria 2021-09-07 Completed [facility] 09:59:00 [facility] Afluria Afluria 2021-09-07 Completed [facility] 09:59:00 [facility] Afluria Afluria 2021-09-07 Completed [facility] 09:59:00 [facility] Afluria Afluria 2021-09-07 Completed [facility] 09:59:00 [facility] Afluria Afluria 2021-09-07 Completed [facility] 09:59:00 [facility] Afluria Afluria 2021-09-07 Completed [facility] 09:59:00 [facility] Afluria Afluria 2021-09-07 Completed [facility] 09:59:00 [facility] Afluria Afluria 2021-09-07 Completed [facility] 09:59:00 [facility] Afluria Afluria 2021-09-07 Completed [facility] 09:59:00 [facility] Afluria Afluria 2021-09-07 Completed [facility] 09:59:00 [facility] Afluria Afluria 2021-09-07 Completed [facility] Moderna [facility] 2021-06-30 Com[facility] Vaccine 09:58:00 [facility] Moderna COVID-19 Moderna COVID-19 2021-06-30 Completed [facility] Vacc[facility] Vaccine 09:58:00 - [facility] Moderna COVID-19 Moderna COVID-19 2021-06-30 Completed [facility] Vaccine Vaccine 09:58:00 - [facility] Moderna COVID-19 Moderna COVID-19 2021-06-30 Completed [facility] Vaccine 09:58:00 - [facility] Moderna COVID-19 Moderna COVID-19 2021-06-30 Completed [facility] Vaccine Vaccine 09:58:00 - [facility] Moderna COVID-19 Moderna COVID-19 2021-06-30 Completed [facility]ine Vaccine 09:58:00 - [facility] Moderna COVID-19 Moderna COVID-19 2021-06-30 Completed [facility] Vaccine Vaccine 09:58:00 - [facility] Moderna COVID-19 Moderna COVID-19 2021-06-30 Completed [facility] Vaccine Vaccine 09:58:00 - [facility] Moderna COVID-19 Moderna COVID-19 2021-06-30 Completed [facility] Vaccine Vaccine 09:58:00 - [facility] Moderna COVID-19 Moderna COVID-19 2021-06-30 Completed [facility] Vaccine Vaccine 09:58:00 - [facility] Moderna COVID-19 Moderna COVID-19 2021-06-30 Completed [facility] Vaccine Vaccine 09:58:00 - [facility] Moderna COVID-19 Moderna COVID-19 2021-06-30 Completed [facility] Vaccine Vaccine 09:58:00 - [facility] Moderna COVID-19 Moderna COVID-19 2021-06-30 Completed [facility] Vaccine Vaccine 09:58:00 - [facility] Moderna COVID-19 Moderna COVID-19 2021-06-30 Completed [facility] Vaccine Vaccine 09:58:00 - [facility] Moderna COVID-19 Moderna COVID-19 2021-06-30 Completed [facility] Vaccine Vaccine 09:58:00 - [facility] Moderna COVID-19 Moderna COVID-19 2021-06-30 Completed [facility] Vaccine Vaccine 09:58:00 - [facility] Moderna COVID-19 Moderna COVID-19 2021-06-30 Completed [facility] Vaccine Vaccine 09:58:00 - [facility] Moderna COVID-19 Moderna COVID-19 2021-06-01 Completed [facility] Vaccine Vaccine 10:25:00 - [facility] Moderna COVID-19 Moderna COVID-19 2021-06-01 Completed [facility] Vaccine Vaccine 10:25:00 - [facility] Moderna COVID-19 Moderna COVID-19 2021-06-01 Completed [facility] Vaccine Vaccine 10:25:00 - [facility] Moderna COVID-19 Moderna COVID-19 2021-06-01 Completed [facility] Vaccine Vaccine 10:25:00 - [facility] Moderna COVID-19 Moderna COVID-19 2021-06-01 Completed [facility] Vaccine Vaccine 10:25:00 - [facility] Moderna COVID-19 Moderna COVID-19 2021-06-01 Completed [facility] Vaccine Vaccine 10:25:00 - [facility] Moderna COVID-19 Moderna COVID-19 2021-06-01 Completed [facility] Vaccine Vaccine 10:25:00 - [facility] Moderna COVID-19 Moderna COVID-19 2021-06-01 Completed [facility] Vaccine Vaccine 10:25:00 - [facility] Moderna COVID-19 Moderna COVID-19 2021-06-01 Completed [facility] Vaccine Vaccine 10:25:00 - [facility] Moderna COVID-19 Moderna COVID-19 2021-06-01 Completed [facility] Vaccine Vaccine 10:25:00 - [facility] Moderna COVID-19 Moderna COVID-19 2021-06-01 Completed [facility] Vaccine Vaccine 10:25:00 - [facility] Moderna COVID-19 Moderna COVID-19 2021-06-01 Completed [facility] Vaccine Vaccine 10:25:00 - [facility] Moderna COVID-19 Moderna COVID-19 2021-06-01 Completed [facility] Vaccine Vaccine 10:25:00 - [facility] Moderna COVID-19 Moderna COVID-19 2021-06-01 Completed [facility] Vaccine Vaccine 10:25:00 - [facility] Moderna COVID-19 Moderna COVID-19 2021-06-01 Completed [facility] Vaccine Vaccine 10:25:00 - [facility] Moderna COVID-19 Moderna COVID-19 2021-06-01 Completed [facility] Vaccine Vaccine 10:25:00 - [facility] Moderna COVID-19 Moderna COVID-19 2021-06-01 Completed [facility] Vaccine Vaccine 10:25:00 - [facility] Moderna COVID-19 Moderna COVID-19 2021-06-01 Completed [facility] Vaccine Vaccine 10:25:00 - [facility] Moderna COVID-19 Moderna COVID-19 2021-06-01 Completed [facility] Vaccine Vaccine 10:25:00 - [facility] Moderna COVID-19 Moderna COVID-19 2021-06-01 Completed [facility] Vaccine Vaccine 10:25:00 - [facility] Moderna COVID-19 Moderna COVID-19 2021-06-01 Completed [facility] Vaccine Vaccine 10:25:00 - [facility] Moderna COVID-19 Moderna COVID-19 2021-06-01 Completed [facility] Vaccine Vaccine 10:25:00 - [facility] Moderna COVID-19 Moderna COVID-19 2021-06-01 Completed [facility] Vaccine Vaccine 10:25:00 - [facility] Kenalog Kenalog 2019-07-29 Completed [facility] (Triamcinolone) (Triamcinolone) 08:51:00 - [facility] Kenalog Kenalog 2019-07-29 Completed [facility] (Triamcinolone) (Triamcinolone) 08:51:00 - [facility] 2019-07-29 Completed [facility] (Triamcinolone) (Triamcinolone) 08:51:00 - [facility] 2019-07-29 Completed [facility] (Triamcinolone) (Triamcinolone) 08:51:00 - [facility] 2019-07-29 Completed [facility] (Triamcinolone) (Triamcinolone) 08:51:00 - [facility] 2019-07-29 Completed [facility] (Triamcinolone) (Triamcinolone) 08:51:00 - [facility] 2019-07-29 Completed [facility] (Triamcinolone) (Triamcinolone) 08:51:00 - [facility] 2019-07-29 Completed [facility] (Triamcinolone) (Triamcinolone) 08:51:00 - [facility] 2019-07-29 Completed [facility] (Triamcinolone) (Triamcinolone) 08:51:00 - [facility] 2019-07-29 Completed [facility] (Triamcinolone) (Triamcinolone) 08:51:00 - [facility] 2019-07-29 Completed [facility] (Triamcinolone) (Triamcinolone) 08:51:00 - [facility] 2019-07-29 Completed [facility] (Triamcinolone) (Triamcinolone) 08:51:00 - [facility] 2019-07-29 Completed [facility] (Triamcinolone) (Triamcinolone) 08:51:00 - [facility] 2019-07-29 Completed [facility] (Triamcinolone) (Triamcinolone) 08:51:00 - [facility] Adacel (Tdap) Adacel (Tdap) 2019-01-05 Completed [facility]00 [facility] Adacel (Tdap) Adacel (Tdap) 2019-01-05 Completed [facility] 16:04:00 - [facility] Adacel (Tdap) Adacel (Tdap) 2019-01-05 Completed [facility] 16:04:00 - [facility] Adacel (Tdap) Adacel (Tdap) 2019-01-05 Completed [facility] 16:04[facility]00 - [facility] Adacel (Tdap) Adacel (Tdap) 2019-01-05 Completed [facility] 16:04[facility]00 - [facility] Adacel (Tdap) Adacel (Tdap) 2019-01-05 Completed [facility] 16:04[facility]00 - [facility] Adacel (Tdap) Adacel (Tdap) 2019-01-05 Completed [facility] 16:04:00 - [facility] Adacel (Tdap) Adacel (Tdap) 2019-01-05 Completed [facility] 16:04:00 - [facility] Adacel (Tdap) Adacel (Tdap) 2019-01-05 Completed [facility] 16:04:00 - [facility] Adacel (Tdap) Adacel (Tdap) 2019-01-05 Completed [facility] 16:04:00 - [facility] Adacel (Tdap) Adacel (Tdap) 2019-01-05 Completed [facility] 16:04:00 - [facility] Adacel (Tdap) Adacel (Tdap) 2019-01-05 Completed [facility] 16:04:00 - [facility] Adacel (Tdap) Adacel (Tdap) 2019-01-05 Completed [facility] 16:04:00 - [facility] Adacel (Tdap) Adacel (Tdap) 2019-01-05 Completed [facility] 16:04:00 - [facility] Adacel (Tdap) Adacel (Tdap) 2019-01-05 Completed [facility] 16:04:00 - [facility] Adacel (Tdap) Adacel (Tdap) 2019-01-05 Completed [facility] 16:04:00 - [facility] Adacel (Tdap) Adacel (Tdap) 2019-01-05 Completed [facility] 16:04:00 - [facility] Adacel (Tdap) Adacel (Tdap) 2019-01-05 Completed [facility] 16:04:00 - [facility] Adacel (Tdap) Adacel (Tdap) 2019-01-05 Completed Common [facility]irit 16:04:00 - [facility] Adacel (Tdap) Adacel (Tdap) 2019-01-05 Completed [facility] 16:04:00 - [facility] Adacel (Tdap) Adacel (Tdap) 2019-01-05 Completed [facility] 16:04:00 - [facility] Adacel (Tdap) Adacel (Tdap) 2019-01-05 Completed [facility] 16:04:00 - [facility] Adacel (Tdap) Adacel (Tdap) 2019-01-05 Completed [facility] 16:04:00 - [facility] Adacel (Tdap) Adacel (Tdap) 2019-01-05 Completed [facility] 16:04:00 - [facility] Adacel (Tdap) Adacel (Tdap) 2019-01-05 Completed [facility] 16:04:00 - [facility] Adacel (Tdap) Adacel (Tdap) 2019-01-05 Completed [facility] 16:04:00 - [facility] Adacel (Tdap) Adacel (Tdap) 2019-01-05 Completed [facility] 16:04:00 - [facility] Adacel (Tdap) Adacel (Tdap) 2019-01-05 Completed [facility] 16:04:00 - [facility] Adacel (Tdap) Adacel (Tdap) 2019-01-05 Completed [facility] 16:04:00 - [facility] Adacel (Tdap) Adacel (Tdap) 2019-01-05 Completed [facility] 16:04:00 - [facility] Adacel (Tdap) Adacel (Tdap) 2019-01-05 Completed [facility] 16:04:00 - [facility] Adacel (Tdap) Adacel (Tdap) 2019-01-05 Completed [facility] 16:04:00 [facility] Vital Signs Vital Name Observation Time Observation Value Comments Source height 2022-11-18 16:00:00 61 [in_i] Common S pirit [facility] weight 2022-11-18 16:00:00 233.6 [lb_av] [facility] temperature 2022-11-18 16:00:00 97.2 [degF] Common S pirit [facility] bmi 2022-11-18 16:00:00 44.13 kg/m2 [facility] pirit [facility] oximetry 2022-11-18 16:00:00 98 % [facility] respiratory rate 2022-11-18 16:00:00 16 /min Comm on [facility] blood pressure 2022-11-18 16:00:00 109 mm[Hg] [facility] - systolic [facility] blood pressure 2022-11-18 16:00:00 74 mm[Hg] [facility] - diastolic [facility] height 2022-11-04 14:20:00 61 [in_i] [facility] weight 2022-11-04 14:20:00 233.6 [lb_av] [facility] temperature 2022-11-04 14:20:00 97.9 [degF] Common S pirit [facility] bmi 2022-11-04 14:20:00 44.13 kg/m2 [facility] pirit [facility] oximetry 2022-11-04 14:20:00 97 % [facility] respiratory rate 2022-11-04 14:20:00 15 /min Comm on [facility] blood pressure 2022-11-04 14:20:00 115 mm[Hg] [facility] - systolic [facility] blood pressure 2022-11-04 14:20:00 72 mm[Hg] [facility] - diastolic [facility] HEIGHT 2022-06-17 09:04:00 152.4 cm WEIGHT 2022-06-17 09:04:00 102.059 kg HEIGHT 2022-06-17 09:04:00 152.4 cm WEIGHT 2022-06-17 09:04:00 102.059 kg HEIGHT 2022-02-22 08:41:00 152.4 cm WEIGHT 2022-02-22 08:41:00 102.513 kg HEIGHT 2022-02-22 08:41:00 152.4 cm WEIGHT 2022-02-22 08:41:00 102.513 kg height 2022-01-31 11:40:00 61 [in_i] [facility] weight 2022-01-31 11:40:00 220.2 [lb_av] [facility] temperature 2022-01-31 11:40:00 97.6 [degF] [facility] bmi 2022-01-31 11:40:00 41.60 kg/m2 [facility] oximetry 2022-01-31 11:40:00 99 % [facility] respiratory rate 2022-01-31 11:40:00 15 /min Comm on [facility] blood pressure 2022-01-31 11:40:00 109 mm[Hg] [facility] - systolic [facility] blood pressure 2022-01-31 11:40:00 71 mm[Hg] [facility] - diastolic [facility] height 2021-11-06 15:00:00 61 [in_i] [facility] weight 2021-11-06 15:00:00 227.8 [lb_av] [facility] temperature 2021-11-06 15:00:00 98.1 [degF] [facility] bmi 2021-11-06 15:00:00 43.04 kg/m2 [facility] oximetry 2021-11-06 15:00:00 98 % [facility] respiratory rate 2021-11-06 15:00:00 15 /min Comm on [facility] blood pressure 2021-11-06 15:00:00 108 mm[Hg] [facility] - systolic [facility] blood pressure 2021-11-06 15:00:00 69 mm[Hg] [facility] - diastolic [facility] height 2021-10-19 09:20:00 61 [in_i] [facility] weight 2021-10-19 09:20:00 227 [lb_av] Common [facility] temperature 2021-10-19 09:20:00 97.0 [degF] Common [facility] bmi 2021-10-19 09:20:00 42.89 kg/m2 [facility] oximetry 2021-10-19 09:20:00 98 % [facility] respiratory rate 2021-10-19 09:20:00 18 /min Comm on [facility] blood pressure 2021-10-19 09:20:00 110 mm[Hg] [facility] - systolic [facility] blood pressure 2021-10-19 09:20:00 72 mm[Hg] [facility] - diastolic [facility] height 2021-09-27 16:00:00 61 [in_i] Common [facility] weight 2021-09-27 16:00:00 230 [lb_av] Common S p[facility] temperature 2021-09-27 16:00:00 97.9 [degF] [facility] bmi 2021-09-27 16:00:00 43.45 kg/m2 [facility] oximetry 2021-09-27 16:00:00 98 % [facility] respiratory rate 2021-09-27 16:00:00 18 /min Comm on [facility] blood pressure 2021-09-27 16:00:00 112 mm[Hg] [facility] - systolic [facility] blood pressure 2021-09-27 16:00:00 68 mm[Hg] [facility] - diastolic [facility] height 2021-04-16 09:00:00 61 [in_i] [facility] weight 2021-04-16 09:00:00 231 [lb_av] [facility] temperature 2021-04-16 09:00:00 98.4 [degF] [facility] bmi 2021-04-16 09:00:00 43.64 kg/m2 [facility] Systolic blood 2022-06-17 09:04:00 108 mm[Hg] [facility] Diastolic blood 2022-06-17 09:04:00 74 mm[Hg] [facility] Heart rate 2022-06-17 09:04:00 86 /min [facility] Body temperature 2022-06-17 09:04:00 36.5 Yulia [facility] Body height 2022-06-17 09:04:00 152.4 cm [facility] Body weight 2022-06-17 09:04:00 102.059 kg [facility] BMI 2022-06-17 09:04:00 43.94 kg/m2 [facility] Procedures Procedure Date / Time Performed Performing Clinician Sourkelly e US PELVIC BLADDER ONLY 2022-06-17 14:07:00 Silke Payton [facility] FERRITIN 2022-06-17 09:46:00 Silke Payton [facility] CBC W/PLT COUNT & AUTO 2022-06-17 09:46:00 Silke Payton [facility] POCT , URINE 2022-06-17 09:22:00 Silke Payton [facility] FOLLICLE STIMULATING 2022-04-17 15:33:00 Silke Payton CH, I [facility] HORMONE (FSH) [facility] ESTRADIOL (E2) 2022-04-17 15:33:00 Silke Payton [facility] ANTI-MULLERIAN HORMONE 2022-04-17 15:33:00 Silke Payton [facility] US PELVIS WITH ENDOVAG 2022-03-22 13:54:[address] [facility] VITAMIN D, 25-HYDROXY 2022-02-22 10:19:00 Silke Payton [facility] HEMOGLOBIN A1C 2022-02-22 10:19:00 Silke Payton [facility] PROGESTERONE 2022-02-22 10:19:00 Silke Payton [facility] TSH/FREE T4 IF INDICATED 2022-02-22 10:19:00 Silke Payton [facility] PAP IG CT-NG RFX HPV 2022-02-22 00:00:00 Provider, Historical [facility] Plan of Care Planned Activity Planned Date Details Comments Source Future Scheduled 2029-01-05 DTAP/TDAP/TD VACCINES [facility] Test 00:00:00 (8 - Td or Tdap) [code Medic al Center = DTAP/TDAP/TD VACCINES (8 - Td or Tdap)] Future Scheduled 2025-02-[address] [facility] Test 00:00:00 malignant neoplasm of Medica Center cervix (procedure) [code = 847701287] Future Scheduled 2023-06-[address] [facility] Test 00:00:00 [facility] Medical Cente r Screening (12+) [code = Tobacco Cessation Counseling and Screening (12+)] Future Scheduled 2022-08-01 INFLUENZA VACCINE (#1) [facility] 00:00:00 [code = INFLUENZA Medical Ce nter VACCINE (#1)] Future Scheduled 2022-03-13 COVID-19 VACCINE (4 - [facility] Test 00:00:00 Booster for [facility] Center series) [code = COVID-19 VACCINE (4 [facility] Future Scheduled [address] [facility] Test 00:00:00 (procedure) [code = [facility] [id number]] Future Scheduled 2013 HEPATITIS C SCREENING [facility] Test 00:00:00 [code = HEPATITIS C Medical Center SCREENING] Future Scheduled [address] [facility] Test 00:00:00 0-64 YRS (1 - PCV) Medical C enter [code = PNEUMOCOCCAL VACCINE 0-64 YRS (1 - PCV)] Encounters Start End Encounter Admission Attending Care Care Encounter Source Date/Time Date/Time Type Type Clinicians Facility Department ID 2022-07-15 Outpatient FITO, [facility] Surgery [id number] SLS 11:29:59 SILKE 2022-01-16 Outpatient Henry, Na STLMLC STLMLC [id number] Common 08:59:00 [facility] 2022-01-01 Outpatient Henry, Na STLMLC STLMLC [id number] Common 09:23:01 [facility] 2021-12-26 Outpatient Henry, Na STLMLC STLMLC [id number] Common 14:07:26 [id number] [facility] 2021-12-26 Outpatient Henry, Na STLMLC STLMLC [id number] Common 14:05:35 [id number] [facility] 2021-12-26 Outpatient Anne, STLMLC STLMLC [id number] Common 13:21:58 Preston [id number] [facility] 2021-12-26 Outpatient Anne, STLMLC STLMLC [id number] Common 13:03:54 Preston [address]8942 [facility] 2023-01-09 2023-01-09 (TEL) STLMLC STLMLC [id number] Co mmon 00:00:00 00:00:00 [facility] 2022-11-18 2022-11-18 (TEL) STLMLC STLMLC [id number] Co mmon 00:00:00 00:00:00 [facility] 2022-11-18 2022-11-18 (TEL) STLMLC STLMLC [id number] Co mmon 00:00:00 00:00:00 [facility] 2022-11-18 2022-11-18 OL DIG E/M STLMLC STLMLC [id number] Common 00:00:00 00:00:00 C 11-20 Spir it MIN - [facility] 2022-11-08 2022-11-08 (TEL) STLMLC STLMLC [id number] Co mmon 00:00:00 00:00:00 [facility] 2022-11-04 2022-11-04 (TEL) STLMLC STLMLC [id number] Co mmon 00:00:00 00:00:00 [facility] 2022-11-04 2022-11-04 OFFICE STLMLC STLMLC [id number] Co mmon 00:00:00 00:00:00 VISIT EST Spir it PT LEVEL 3 - [facility] 2022-11-04 2022-11-04 Tona Lorenz [facility] [id number] 00:00[facility] 00:00:00 [facility] 2022-11-01 2022-11-01 (TEL) STLC STLMLC [id number] Co mmon 00:00:00 00:00:00 [facility] 2022-08-23 2022-08-23 Outpatient NANCY PAYTON [facility] [id number] 00:00:00 00:00:00 [facility] 2022-07-30 2022-07-30 Telephone Fito [facility] [id number] 00:00:00 00:00:00 [facility] 2022-06-20 2022-06-20 Telephone Fito [facility] [id number] 00:00:00 00:00:00 [facility] 2022-06-17 2022-06-17 Outpatient NANCY PAYTON [facility] [id number] 08:58:09 09:45:41 [facility] 2022-06-17 2022-06-17 Office Fito [facility] [id number] 08:45:00 09:45:41 Visit [facility] 2022-06-17 2022-06-17 Refill Fito [facility] [id number] 00:00:00 00:00:00 [facility] 2022-06-17 2022-06-17 Refill Fito [facility] [id number] 00:00:00 00:00:00 [facility] 2022-06-14 2022-06-14 Telephone Fito, [facility] [id number] 00:00:00 00:00:00 [facility] 2022-06-06 2022-06-06 Outpatient EL FITO [facility] [id number] 00:00:00 00:00:00 [facility] 2022-04-22 2022-04-22 Outpatient FITO [facility] [id number] 00:00:00 00:00:00 [facility] 2022-03-22 2022-03-22 Outpatient EL SLSL SLSL [id number] SLSL 13:13:17 23:59:00 2022-03-22 2022-03-22 [facility] [id number] 13:13:17 23:59:00 [facility] 2022-03-22 2022-03-22 Outside Fito [facility] [id number] 00:00:00 00:00:00 Orders [facility] 2022-03-08 2022-03-08 Abstract Fito [facility] [id number] 00:00:00 00:00:00 [facility] 2022-03-06 2022-03-06 [facility] [id number] Co mmon 00:00:00 00:00:00 [facility] - [facility] 2022-02-23 2022-02-23 Refill Fito [facility] [id number] 00:00:00 00:00:00 [facility] 2022-02-23 2022-02-23 Orders Fito [facility] [id number] 00:00:00 00:00:00 Only [facility] 2022-02-22 2022-02-22 Office Fito [facility] [id number] 09:00:00 10:10:28 Visit [facility] 2022-02-22 2022-02-22 Outpatient FITO [facility] [id number] 08:30:10 10:10:28 [facility] 2022-02-21 2022-02-21 Telephone Fito [facility] [id number] 00:00:00 00:00:00 [facility] 2022-01-31 2022-01-31 (TEL) STLMLC STLMLC [id number] Co mmon 00:00:00 00:00:00 [facility] 2022-01-31 2022-01-31 OFFICE STLMLC STLMLC [id number] Co mmon 00:00:00 00:00:00 VISIT EST Spir it PT LEVEL 3 - [facility] 2022-01-29 2022-01-29 (TEL) STLMLC STLMLC [id number] Co mmon 00:00:00 00:00:00 [facility] 2022-01-16 2022-01-16 (COVID STLMLC STLMLC [id number] Co mmon 00:00:00 00:00:00 Inj) COVID Spi rit Injection [facility] 2021-11-12 2021-11-12 (TEL) STLMLC STLMLC [id number] Co mmon 00:00:00 00:00:00 [facility] 2021-11-06 2021-11-06 OFFICE STLMLC STLMLC [id number] Co mmon 00:00:00 00:00:00 VISIT EST Spir it PT LEVEL 3 - [facility] 2021-10-24 2021-10-24 (TEL) STLMLC STLMLC [id number] Co mmon 00:00:00 00:00:00 [facility] 2021-10-19 2021-10-19 OFFICE STLMLC STLMLC [id number] Co mmon 00:00:00 00:00:00 VISIT EST Spir it PT LEVEL 3 - [facility] 2021-10-01 2021-10-01 (TEL) STLMLC STLMLC [id number] Co mmon 00:00:00 00:00:00 [facility] 2021-09-27 2021-09-27 PREV VISIT STLMLC STLMLC [id number] Common 00:00:00 00:00:00 EST AGE [facility] 18-39 - [facility] 2021-09-25 2021-09-25 (TEL) STLMLC STLMLC [id number] Co mmon 00:00:00 00:00:00 [facility] 2021-08-01 2021-08-01 (TEL) STLMLC STLMLC [id number] Co mmon 00:00:00 00:00:00 [facility] 2021-06-18 2021-06-18 (TEL) STLMLC STLMLC [id number] Co mmon 00:00:00 00:00:00 [facility] 2021-06-01 2021-06-01 (COVID STLMLC STLMLC [id number] Co mmon 00:00:00 00:00:00 Inj) COVID Spi rit Injection [facility] 2021-05-08 2021-05-08 (TEL) STLMLC STLMLC [id number] Co mmon 00:00:00 00:00:00 [facility] 2021-04-16 2021-04-16 (TEL) STLMLC STLMLC [id number] Co mmon 00:00:00 00:00:00 [facility] 2021-04-16 2021-04-16 OFFICE STLMLC STLMLC [id number] Co mmon 00:00:00 00:00:00 VISIT [facility] PT - [facility] LEVEL 2 [facility] 2021-04-12 2021-04-12 (TEL) STLMLC STLMLC [id number] Co mmon 00:00:00 00:00:00 [facility] 2021-04-11 2021-04-11 (TEL) STLMLC STLMLC [id number] Co mmon 00:00:00 00:00:00 [facility] 2021-04-11 2021-04-11 (TEL) STLMLC STLMLC [id number] Co mmon 00:00:00 00:00:00 [facility] 2021-04-11 2021-04-11 OFFICE STLMLC STLMLC [id number] Co mmon 00:00:00 00:00:00 VISIT [facility] [address] 2021-03-16 2021-03-16 (TEL) STLMLC STLMLC [id number] Co mmon 00:00:00 00:00:00 [facility] 2021-03-06 2021-03-06 (TEL) STLMLC STLMLC [id number] Co mmon 00:00:00 00:00:00 [facility] 2021-02-06 2021-02-06 Outpatient STLMLC STLMLC [id number] Common 00:00:00 00:00:00 [facility] 2021-02-02 2021-02-02 Outpatient STLMLC STLMLC [id number] Common 00:00:00 00:00:00 [facility] 2021-01-25 2021-01-25 Outpatient STLMLC STLMLC [id number] Common 00:00:00 00:00:00 [facility] 2021-01-23 2021-01-23 Outpatient STLMLC STLMLC [id number] Common 00:00:00 00:00:00 [facility] 2021-01-23 2021-01-23 Outpatient STLMLC STLMLC [id number] Common 00:00:00 00:00:00 [facility] 2020-12-08 2020-12-08 Outpatient STLMLC STLMLC [id number] Common 00:00:00 00:00:00 [facility] 2020-12-06 2020-12-06 Outpatient STLMLC STLMLC [id number] Common 00:00:00 00:00:00 [facility] 2020-12-05 2020-12-05 Outpatient STLMLC STLMLC [id number] Common 00:00:00 00:00:00 [facility] 2020-10-16 2020-10-16 Outpatient STLMLC STLMLC [id number] Common 00:00:00 00:00:00 [facility] 2020-09-26 2020-09-26 Outpatient STLMLC STLMLC [id number] Common 00:00:00 00:00:00 [facility] 2020-09-06 2020-09-06 Outpatient STLMLC STLMLC [id number] Common 00:00:00 00:00:00 [facility] 2020-05-11 2020-05-11 [id number] Common 12:25:00 12:25:[address] [facility] 2020-05-09 2020-05-09 [facility] [id number] Common 15:13:00 15:13:[address] [facility] 2020-04-03 2020-04-03 [facility] [id number] Common 13:30:00 13:30:[address] [facility] 2020-03-31 2020-03-31 [facility] [id number] Common 13:30:00 13:30:[address] [facility] 2020-03-31 2020-03-31 [facility] [id number] Common 09:24:00 09:24:[address] [facility] 2020-03-30 2020-03-30 [facility] [id number] Common 14:39:00 14:39:[address] [facility] 2020-03-29 2020-03-29 [facility] [id number] Common 08:00:00 08:00:[address] [facility] 2019-10-05 2019-10-05 [facility] [id number] Common 08:18:00 08:18:[address] [facility] 2019-09-28 2019-09-28 [facility] [id number] Common 16:49:00 16:49:[address] [facility] 2019-08-24 2019-08-24 [facility] [id number] Common 15:40:00 15:40:[address] [facility] 2019-08-10 2019-08-10 [facility] [id number] Common 16:16:00 16:16:[address] [facility] 2019-07-29 2019-07-29 [facility] [id number] Common 08:20:00 08:20:[address] [facility] 2019-06-22 2019-06-22 [facility] [id number] Common 09:32:00 09:32:00 [facility] 2019-04-22 2019-04-22 [facility] [id number] Common 13:00:00 13:00:[address] [facility] 2019-04-12 2019-04-12 [facility] [id number] Common 11:00:00 11:00:[address] [facility] 2019-04-05 2019-04-05 [facility] [id number] Common 09:10:00 09:10:00 t [facility] 2019-03-23 2019-03-23 [facility] [id number] Common 10:30:00 10:30:00 t [facility] 2019-03-16 2019-03-16 [facility] [id number] Common 15:02:00 15:02:[address] [facility] 2019-02-23 2019-02-23 [facility] [id number] Common 17:44:00 17:44:00 t [place] [facility] [facility] 2019-02-23 2019-02-23 [facility] [id number] Common 09:45:00 09:45:00 t [place] [employer] [address] Drive [facility] Results Test Description Test Time Test Comments Results Result Comments Source Ferritin 2022-06-18 07:09:00 Test Item Value Reference Range Interpretation Comme nts Ferritin, Serum (test code = 2276-4) 34 ng/mL 15-150 NINFA (test code = NINFA) Performed at: [address] [place] [address] [id number] Director: Kvng Maria MD, Phone: [phone] [facility] W/ PLT COUNT AUTO [id number] 07:09:00 Test Item Value Reference Range Interpretation Comments WBC (test code = 8.8 See_Comment [Automated ) message] The system which generated this result transmit roly reference range : 3.4 - 10.8 x10E3/uL. The reference range was not used to interpret this result as normal/abnormal . RBC (test code = 5.05 See_Comment [Automated 060-8) message] The system which generated this result transmit roly reference range : 3.77 - 5.28 x10E6/uL. The reference range was not used to interpret this result as normal/abnormal . Hemoglobin (test 13.7 g/dL 11.1-15.9 code = [id number]) Hematocrit (test 43.2 % 34.0-46.6 code = ) MCV (test code = 86 fL 79-97 ) [facility] (test code = 27.1 pg 26.6-33.0 ) MCHC (test code = 31.7 g/dL 31.5-35.7 ) RDW (test code = 12.4 % 11.7-15.4 ) Platelets (test 410 See_Comment [Automated code = ) message] The system which generated this result transmit roly reference range : 150 - 450 x10E3/uL. The reference range was not used to interpret this result as normal/abnormal . % Neutros (test 58 % Not Estab. code = ) % Lymphs (test 32 % Not Estab. code = ) % Monos (test code 8 % Not Estab. = ) % Eos (test code = 1 % Not Estab. ) % Baso (test code 0 % Not Estab. = ) # Neutros (test 5.2 See_Comment [Automated code = ) message] The system which generated this result transmit roly reference range : 1.4 - 7.0 x10E3/uL. The reference range was not used to interpret this result as normal/abnormal . # Lymphs (test 2.8 See_Comment [Automated code = ) message] The system which generated this result transmit roly reference range : 0.7 - 3.1 x10E3/uL. The reference range was not used to interpret this result as normal/abnormal . # Monos (test code 0.7 See_Comment [Automat ed = ) message] The system which generated this result transmit roly reference range : 0.1 - 0.9 x10E3/uL. The reference range was not used to interpret this result as normal/abnormal . # Eos (test code = 0.1 See_Comment [Automat ed ) message] The system which generated this result transmit roly reference range : 0.0 - 0.4 x10E3/uL. The reference range was not used to interpret this result as normal/abnormal . Baso (Absolute) 0.0 See_Comment [Automated (test code = message] The ) system which generated this result transmit roly reference range : 0.0 - 0.2 x10E3/uL. The reference range was not used to interpret this result as normal/abnormal . % Immature Grans 1 % Not Estab. (test code = ) # Immature Grans 0.0 See_Comment [Automated (test code = message] The ) system which generated this result transmit roly reference range : 0.0 - 0.1 x10E3/uL. The reference range was not used to interpret this result as normal/abnormal . NINFA (test code = Performed at: ) [facility] [address] [place], [place] [id number] Director: Kvng Maria MD, Phone: [phone] [facility]PO[facility] , [id number] 09:22:00 Test Item Value Reference Range Interpretation Comments Test Urine, POC (test code Negative = 0857841) Control line present?, POC (test Yes code = 7691788) Background clear?, POC (test code = Yes 4061992) UPT Cassette Lot #, POC (test code = 59467 7317240) UPT Cassette Expiration Date, POC 00541 (test code = 7786319) [facility] CenterFollicle stimulating hormone (FSH)2022-04-22 18:08:00 Test Item Value Reference Range Interpretation Comments FSH (test 4.2 mIU/mL Adult Female: code = Follicular phas e 3.5 - ) 12.5 Ovulation phase 4.7 - 21.5 Lute al phase 1.7 - 7.7 Postmenopausal 25.8 - 134.8 NINFA (test Performed at: - code = NINFA) [facility] [address] [place], [place] [id number] Director: Kvng Maria MD, Phone: [phone] [facility] CenterEstradiol (E2)2022-04-22 18:08:00 Test Item Value Reference Range Interpretation Comments Estradiol (test 76.7 pg/mL Adult Femal e: code = 2243-4) Follicular ph ase 12.5 - 166.0 Ovulati on phase 85.8 - 49 8.0 Luteal phase 43 .8 - 211.0 Postmenop ausal <6.0 - 54.7 Pre gnancy 1st trimester 2 15.0 - >4300.0Roche EC MAHESH methodology NINFA (test code = Performed at: 02 NINFA) - [facility] [address] [place], [place] [id number] Director: Kvng Maria MD, Phone: [phone] [facility] CenterANTI-MULLERIAN HORMONE (AMH)2022-04-22 18:08:00 Test Item Value Reference Interpretation Comments Range Anti-Mulleri 1.10 ng/mL For assays empl oying an Hormone antibodies, the possibility (AMH) (test exists forinter ference by code = heterophile ant ibodies in the ) samples.1 1.Nichol Gamble. Interferences i n Immunoassays - still a rom t. Clin. Chem. 2000; 46: 1037- 1038. This test was leila zavala and its performance characteristics determined by [employer]. It has not been cleared or appr ovedby the Food and Drug Administration. Reference Range:Females 2 6 - 30y: 1.03 - 11.10Median 4 .20AMH concentrations of >= 1.06 ng/mL is correl ated with abetter respons e to ovarian stimulation, pr oduced moreretrievable oocytes and higher odds of live accordingto Rashi garcia et al. Fertility and S terility. 2010:94:2824-28 27. The current AMH stephan t method correlates with the study method with a s leonor of 0.94.Females at risk of ovarian hyperst imulation syndrome orpoly cystic ovarian syndrome (PCOS) may exhibit elevatedserum A MH concentrations. AMH levels from PCOS patie ntsmay be 2 to 5 fold higher t pereira age-appropriate referenceinterv al values.Granulos a cell tumors of the ovary ma y secrete AMH alongwith other tumor markers. Elevat ed AMH is not specific formal ignancy, and the assay shoul d not be used exclusively tod iagnose or exclude an AMH- secreting ovarian tumor. NINFA (test Performed at: code = NINFA) 01 - [facility] [address] [place], [place] [id number] Director: Mack Jones MD, Phone: [phone] [facility] CenterU/SPELVIS WITH ENDOVAG [id number] 14:33:00Reason for Exam:->other [facility] : 1995 Sex: FFINAL REPORT TECHNIQUE: Transabdominal and transvaginal grayscale ultrasound ofthe pelvis with color Doppler and spectral Doppler ultrasound of the ovaries. INDICATION: AUB COMPARISON: None. FINDINGS: UTERUS: The uterus measures 9 x 3.9 x 5.2 cm. The endometrial echo complex measures 1.1 cm, within normal limits. OVARIES/ADNEXA: Right ovary measures 4.9 x 2.5 x 3 cm. Left ovary measures 3 x 1.2 x 2.3 cm.. There are multiple anechoic follicles within the right ovary measuring upto 2 cm. No additional follow-up is recommended. Arterial and venous flow detected in both ovaries. PELVIS: No free fluid. IMPRESSION:Normal pelvic ultrasound.. Signed: Viktor Parsons MDReport V erified Date/Time: 03/25/2022 14:33:22 Hemoglobin [id number] 07:09:00 Test Item Value Reference Range Interpretation Comments Hemoglobin A1c 5.5 % 4.8-5.6 Prediabetes: (test code = 5.7 - 6.4 4548-4) Diabetes: >6.4 Glycemic contro l for adults with diabetes: <7.0 NINFA (test code = Performed at: ) [facility] [address] [place], [place] [id number] Director: Kvng Maria MD, Phone: [phone] [facility] [id number] 07:09:00 Test Item Value Reference Range Interpretation Comments Progesterone (test 0.3 ng/mL Follicul ar phase code = 2839-9) 0.1 - 0.9 Lut eal phase 1.8 - 23. 9 Ovulation phase 0.1 - 12.0 First trimester 11.0 - 44.3 Second trimester 25.4 - 83.3 Third trim karel 58.7 - 214.0 Postmenopausal 0.0 - 0.1 NINFA (test code = Performed at: NINFA) - [facility] [address] [id number] Director: Kvng Maria MD, Phone: [phone] [facility] CenterVitamin D 25 [id number] 07:09:00 Test Item Value Reference Range Interpretation Comments Vitamin D, 8.4 ng/mL 30.0-100.0 L Vitamin D 25-Hydroxy (test deficiency has been code = 5913833) defined by [facility] Hospital[facility] and an Endocrine Socie ty practice guidel ine as alevel of se rum 25-OH vitamin D less than 20 ng /mL (1,2).The Endoc rine Society went on to further define vitamin Dinsufficiency as a level between 2 1 and 29 ng/mL (2 ).1. IOM ([place] of Medicine). 2010 . Dietary referen ce intakes for erich richardum and Niya Ann on [place]: The [employer] .2. Gideon MF, Ector johnson [place], Javon barbosa CARLSON, et al. Evaluation, treatment, and prevention of vitamin D deficiency: an Endocrine Socie ty clinical practi ce guideline. JCEM . 2010; 96(7):1911-30. NINFA (test code = Performed at: NINFA) - [facility] [address] [id number] Director: Kvng Maria MD, Phone: [phone] Lab Interpretation Abnormal (test code = 83864-4) [facility] CenterTSH/Free T4 If [id number] 07:09:00 Test Item Value Reference Range Interpretation Comments TSH (test code 2.930 See_Comment [Automated m essage] = ) The system [facility] generated this result transmit roly reference range : 0.450 - 4.50 uI U/mL. The reference r jazz was not used to interpret this result as normal/abnormal . NINFA (test code Performed at: 01 - = NINFA) [facility] [place], [place] [id number] Director: Kvng Maria MD, Phone: [phone] [facility] CenterPAP IG CT-NG RFX HPV [id number] 00:00:00 Test Item Value Reference Range Interpretation Comments Pap (test code = [place] [address]-3) intraephithelial lesion or malignancy [facility] CenterARS[facility]OV 2 AntigenSARS-COV 2 AntigenSARS-COV 2 AntigenSARS-COV 2 Antigen
[2023-02-17 12:09] LABS: Absolute Lymphocytes (CBC) 0.5 K/uL (0.7-4.9); Hematocrit 45.1 % (36.0-45.0); Lymphocytes % 4.3 % (15.3-44.8); MCV 85.2 fL (80-100); MPV 8.7 fL (7.6-11.3)
[2023-02-17] MEDS ORDERED: ONDANSETRON 4 MG/2 ML VIAL ONE (12:10)
[2023-02-17] MEDS ORDERED: FAMOTIDINE 20 MG/2 ML VIAL IV ONE (12:10)
[2023-02-17] MEDS ORDERED: NA CHLORIDE 0.9% 1,000 ML ONE (12:10)
[2023-02-17 12:12] LABS: Albumin 3.8 g/dL (3.4-5.0); Bilirubin Total 0.6 mg/dL (0.2-1.0); Protein, Total 8.1 g/dL (6.4-8.2)
--- NOTE | 2023-02-17 12:42 | EDPHYS ---
Physician Documentation [facility] Name: Modesta Braga Age: 27 yrs Sex: Female : 1995 Arrival Date: 02/17/2023 Time: 11:16 Bed 4 Private MD: ED Physician Parminder Mcclendon HPI: 02/17 11:24 This 27 yrs old Female presents to ER via Unassigned with complaints of bs3 Vomiting/Diarrhea. 11:24 27-year-old female history of presents with nausea vomiting abdominal pain bs3 that started today she notes multiple episodes of nonbloody nonbilious emesis and several episodes of watery diarrhea she notes pressure-like epigastric pain no fevers or chills no recent travel no sick contacts. 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 - Social history:: Smoking status: Patient denies any tobacco usage or history of. ROS: 11:24 Constitutional: Negative for fever, chills bs3 11:24 All other systems are negative. Exam: 11:24 Constitutional: This is a well developed, well nourished patient who is awake, alert, bs3 and in no acute distress. Head/Face: Normocephalic, atraumatic. Eyes: Pupils equal round and reactive to light, extra-ocular motions intact. Lids and lashes normal. ENT: mmm, no posterior phyarngeal erythema Neck: Trachea midline, no thyromegaly, no neck stiffness Chest/axilla: Normal chest wall appearance and motion. Nontender with no deformity. No lesions are appreciated. Cardiovascular: Regular rate and rhythm with a normal S1 and S2. symmetric pulses in upper extremities Respiratory: Lungs have equal breath sounds bilaterally, clear to auscultation, no respiratory distress Abdomen/GI: Points to epigastric location of pain however abdomen is soft nontender, no peritoneal signs Vital Signs: 11:29 BP 103 / 75; Pulse 95; Resp 16; Temp 98.1; Pulse Ox 98% on R/A; Weight 96.62 kg; Height iw 5 ft. 1 in. ; Pain 4/10; 12:05 BP 101 / 64; Pulse 82; Resp 16; Pulse Ox 99% on R/A; vg1 13:00 BP 95 / 69; Pulse 78; Resp 16; Pulse Ox 98% on R/A; vg1 11:29 Body Mass Index 40.25 (96.62 kg, 154.94 cm) iw 11:29 Pain Scale: Adult iw MDM: 11:18 Patient medically screened. bs3 12:39 Differential diagnosis: Nonspecific abd pain, gastritis, cholecystitis, pancreatitis, bs3 viral gastroenteritis, gastroenteritis. ED course: Labs normal patient reassessed feeling well no vomiting abdomen soft nontender will discharge home. 12:42 Data reviewed: vital signs, nurses notes, lab test result(s), CBC, electrolytes, bs3 hepatic panel. 02/17 11:23 Order name: CBC with Diff bs3 02/17 11:23 Order name: Comprehensive Metabolic Panel; Complete Time: 12:15 bs3 02/17 11:23 Order name: Lipase; Complete Time: 12:15 bs3 02/17 11:23 Order name: Test, Serum; Complete Time: 12:38 bs3 02/17 12:12 Order name: CBC Smear Scan EDMS Administered Medications: 12:10 Drug: NS 0.9% IV 1000 ml Route: IV; Rate: 100 ml/hr; Site: right antecubital; vg1 13:42 Follow up: IV Status: Completed infusion; IV Intake: 100ml vg1 12:10 Drug: Ondansetron IVP 8 mg Route: IVP; Site: right antecubital; vg1 13:42 Follow up: Response: No adverse reaction; Marked relief of symptoms vg1 12:11 Drug: Famotidine IVP 20 mg Route: IVP; Site: right antecubital; vg1 13:42 Follow up: Response: No adverse reaction vg1 Disposition Summary: 02/17/23 12:41 Discharge Ordered Location: Home bs3 Problem: new bs3 Symptoms: have improved bs3 Condition: Stable bs3 Diagnosis - Nausea with vomiting, unspecified bs3 Followup: bs3 - With: Private Physician - When: 2 - 3 days - Reason: Re-evaluation by your physician Discharge Instructions: - Discharge Summary Sheet bs3 - Nausea and Vomiting, Adult bs3 Forms: - Work release form bs3 - Medication Reconciliation Form bs3 - Thank You Letter bs3 - Antibiotic Education bs3 - Prescription Opioid Use bs3 Prescriptions: - ondansetron 8 mg Oral tablet,disintegrating - take 1 tablet by ORAL route every 8 hours; 12 tablet; Refills: 0, Product bs3 Selection Permitted Signatures: Dispatcher [employer] Lluvia Ardon RN RN iw Fior Del Valle RN RN vg1 Parminder Mcclendon MD MD bs3 Corrections: (The following items were deleted from the chart) 11:29 11:28 Home Meds: None; iw irene
--- NOTE | 2023-02-17 12:42 | ER ---
Nurse's Notes [facility] Name: Modesta Braga Age: 27 yrs Sex: Female : 1995 Arrival Date: 02/17/2023 Time: 11:16 Bed 4 Private MD: Diagnosis: Nausea with vomiting, unspecified Presentation: 02/17 11:28 Chief complaint: Patient states: vomiting and diarrhea since 5 am, reports upper abd iw pain. Coronavirus screen: Client presents with at least one sign or symptom that may indicate coronavirus-19. Ebola Screen: Patient negative for fever greater than or equal to 101.5 degrees Fahrenheit, and additional compatible Ebola Virus Disease symptoms Patient denies exposure to infectious person. Patient denies travel to an Ebola-affected area in the 21 days before illness onset. No symptoms or risks identified at this time. Initial Sepsis Screen: Does the patient meet any 2 criteria? No. Patient's initial sepsis screen is negative. Does the patient have a suspected source of infection? No. Patient's initial sepsis screen is negative. Risk Assessment: Do you want to hurt yourself or someone else? Patient reports no desire to harm self or others. Onset of symptoms was February 17, 2023. 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 - Social history:: Smoking status: Patient denies any tobacco usage or history of. Screenin:17 [facility] ED Fall Risk Assessment (Adult) History of falling in the last 3 months, vg1 including since admission No falls in past 3 months (0 pts) Confusion or Disorientation No (0 pts) Intoxicated or Sedated No (0 pts) Impaired Gait No (0 pts) Mobility Assist Device Used No (0 pt) Altered Elimination No (0 pt) Score/Fall Risk Level 0 - 2 = Low Risk Oriented to surroundings, Maintained a safe environment, Educated pt \T\ family on fall prevention, incl call for assistance when getting out of bed, Assessed \T\ reinforced patient's understanding of fall precautions. Abuse screen: Denies threats or abuse. Denies injuries from another. Nutritional screening: No deficits noted. Tuberculosis screening: No symptoms or risk factors identified. Assessment: 12:17 General: Appears in no apparent distress. comfortable, Behavior is calm, cooperative. vg1 Pain: Complains of pain in epigastric area Pain currently is 4 out of 10 on a pain scale. Pain began this morning around 0500. Neuro: Level of Consciousness is awake, alert, obeys commands, Oriented to person, place, time, situation. Cardiovascular: Patient's skin is warm and dry. Respiratory: Airway is patent Respiratory effort is even, unlabored. GI: Abdomen is round non-distended, Reports diarrhea, nausea, vomiting. : No signs and/or symptoms were reported regarding the genitourinary system. EENT: No signs and/or symptoms were reported regarding the EENT system. Derm: Skin is pink, warm \T\ dry. Musculoskeletal: Circulation, motion, and sensation intact. 13:30 Reassessment: Patient appears in no apparent distress at this time. No changes from vg1 previously documented assessment. Patient and/or family updated on plan of care and expected duration. Pain level reassessed. Patient is alert, oriented x 3, equal unlabored respirations, skin warm/dry/pink. Vital Signs: 11:29 BP 103 / 75; Pulse 95; Resp 16; Temp 98.1; Pulse Ox 98% on R/A; Weight 96.62 kg; Height iw 5 ft. 1 in. ; Pain 4/10; 12:05 BP 101 / 64; Pulse 82; Resp 16; Pulse Ox 99% on R/A; vg1 13:00 BP 95 / 69; Pulse 78; Resp 16; Pulse Ox 98% on R/A; vg1 11:29 Body Mass Index 40.25 (96.62 kg, 154.94 cm) iw 11:29 Pain Scale: Adult iw ED Course: 11:16 Patient arrived in ED. am2 11:18 Parminder Mcclendon MD is Attending Physician. bs3 11:28 Triage completed. iw 11:29 Arm band placed on. iw 11:41 Fior Del Valle, RN is Primary Nurse. vg1 11:50 Inserted saline lock: 20 gauge in right antecubital area, using aseptic technique. zm Blood collected. 11:50 Test, Serum Sent. zm 11:50 Lipase Sent. zm 11:50 Comprehensive Metabolic Panel Sent. zm 11:50 CBC with Diff Sent. zm 12:17 Patient has correct armband on for positive identification. Bed in low position. Call vg1 light in reach. Side rails up X 1. 12:17 No provider procedures requiring assistance completed. vg1 13:42 IV discontinued, intact, bleeding controlled, No redness/swelling at site. Pressure vg1 dressing applied. Administered Medications: 12:10 Drug: NS 0.9% IV 1000 ml Route: IV; Rate: 100 ml/hr; Site: right antecubital; vg1 13:42 Follow up: IV Status: Completed infusion; IV Intake: 100ml vg1 12:10 Drug: Ondansetron IVP 8 mg Route: IVP; Site: right antecubital; vg1 13:42 Follow up: Response: No adverse reaction; Marked relief of symptoms vg1 12:11 Drug: Famotidine IVP 20 mg Route: IVP; Site: right antecubital; vg1 13:42 Follow up: Response: No adverse reaction vg1 Medication: 12:17 VIS not applicable for this client. vg1 Intake: 13:42 IV: 100ml; Total: 100ml. vg1 Outcome: 12:41 Discharge ordered by . bs3 13:42 Discharged to home ambulatory. vg1 13:42 Condition: good 13:42 Discharge instructions given to patient, Instructed on discharge instructions, follow up and referral plans. medication usage, Demonstrated understanding of instructions, follow-up care, medications, Prescriptions given X 1. 13:42 Patient left the ED. vg1 Signatures: Lluvia Khan, RN RN Anila Park Victoria, RN RN [email or web address] Misty Sales Brandon, MD MD bs3 Corrections: (The following items were deleted from the chart) 11:29 11:28 Home Meds: None; irene bonilla
[2023-02-17 13:15] LABS: White Blood Cell Scan NEUTROPHILIA (OK)
[2023-02-17 13:16] LABS: Blood Morphology Comment NOT SEEN (NOT SEEN); Platelet Estimate ADEQ
[2023-02-17 14:31] VITALS: TEMP 98.1
[2023-02-17 14:33] VITALS: BP 95/69; O2SAT 98
== END 2023-02-17 13:42 | disposition home or self-care (01) ==
LOC: ER 11:15
DX: R11.2 Nausea with vomiting, unspecified (principal)
CPT/HCPCS: 85025; 36415; 84703; 83690; 80053; J2405; J7030